=== PATIENT | female | born 1995 | race Caucasian/White ===

== ENCOUNTER 2020-03-20 12:49 | Outpatient (REF) | payer OTHER, SELFPAY ==
--- NOTE | 2020-03-20 16:22 | MHC.AU.P13 ---
Adult Audiological Evaluation Date of Visit: 03/20/20 [employer] Super[employer] Used: ASL translation by mother Reason for Appointment: Audiological evaluation to monitor the status of Ms. Hill's hearing loss. She has a long standing history of severe to profound sensorineural hearing loss and speaks ASL. She denies any significant changes to her hearing and notes that the hearing aids have been working well. [place] [facility] [place] Moderately severe to profound sensorineural hearing loss in the right ear. Severe to profound sensorineural hearing loss in the left ear. 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: [employer] Model: Jocelyn S III UP Serial Number: [id number] Battery Size: 675 Warranty: 09/01/2017 Dispensed By: [facility] Date of Fittin06/19/2015 Hearing Instrument History- Left Ear: Film Tests Checker: Phonak Model: Jocelyn S III UP Serial Number: [id number] Battery Size: 675 Warranty: 04/17/2014 Dispensed By: [facility] Date of Fittin02/07/2012 Otoscopy: Right Ear: Unremarkable Left Ear: Unremarkable Tympanometry: Right Ear: Normal Middle Ear System (Type A) Left Ear: Normal Middle Ear System (Type A) Hearing Evaluation: Transducer(s) Used: Insert Earphones, Bone Conduction Method: Conventional Audiometry Stimuli Used: Pure Tones Right Ear: Description of Hearing: Moderately severe sensorineural hearing loss from 250-500 Hz, sloping to a severe sensorineural hearing loss from 3770-4254 Hz, and a profound hearing loss from 9822-5832 Hz. Left Ear: Description of Hearing: Severe sensorineural hearing loss from 250-500 Hz, and a profound hearing loss from 3828-5282 Hz. Speech Recognition Threshold (SRT): Method Used: Not performed at today's visit. Right Ear: Did not test- Patient speaks ASL Left Ear: Did not test- Patient speaks ASL Word Discrimination: Method: Not performed at today's visit. Right Ear: Did not test- Patient speaks ASL Left Ear: Did not test- Patient speaks ASL Comparison: Compared to the most recent evaluation: Hearing is stable. Recommendations: Recommendations: Audiological re-evaluation in one year. Recommendations (Other): Hearing aid maintenance was performed. Ms. Hill will be eligible for new hearing aids in June 2020. She should return for a hearing aid evaluation at that time if she is interested in pursuing updated amplification. Diagnosis: Primary Diagnosis: H90.3 Bilateral Sensorineural Hearing Loss Services Performed: Services Performed: Pure Tone- Air & Bone (CPT 05641) Tympanometry (CPT 10944) Signature: Provider: Liliane Francisco, CCC-A
== END 2020-03-20 12:50 | disposition home or self-care (01) ==
LOC: HO.SH 12:49
PROVIDERS: Visit Provider Internal Medicine
DX: Z46.1 Encounter for fitting and adjustment of hearing aid (principal); H90.3 Sensorineural hearing loss, bilateral
CPT/HCPCS: 92553; 92567; 92593; 99499; V5266

== ENCOUNTER 2020-04-27 15:06 | Emergency (ER) | payer OTHER, SELFPAY ==
[2020-04-27 15:14] VITALS: BP 106/72; PULSE 85; RESP 16; TEMP 36.7; O2SAT 98; BMI 53.8
[2020-04-27 16:54] LABS: MANUAL DIFF FLAG NO
[2020-04-27 16:57] LABS: Basophils Percent Auto 0.4 % (0-2); Eosinophils Absolute Auto 0.1 X10*3/uL (0.0-0.4); Hematocrit 39.9 % (37-47); Hemoglobin 12.9 g/dl (12.0-16.0); Imm Gran Abs Auto 0.01 X10*3/uL (0.00-0.03); Imm Gran Pct Auto 0.2 % (0.0-0.4); Lymphocytes Absolute Auto 0.9 X10*3/uL (1.2-4.9); Mean Corpuscular HGB Conc 32.3 g/dl (31.0-35.0); Mean Corpuscular Hemoglobin 26.7 pg (27.0-33.0); Mean Corpuscular Volume 82.4 fL (80-98); Mean Platelet Volume 10.4 fL (9.4-12.3); Monocytes Absolute Auto 0.5 X10*3/uL (0.1-1.2); Monocytes Percent Auto 10.7 % (2-11); Neutrophils Absolute Auto 3.1 X10*3/uL (2.0-8.3); Neutrophils Percent Auto 66.7 % (45-73); Platelet Count 231 X10*3/uL (160-400); Red Blood Count 4.84 X10*6/uL (4.20-5.50); Red Cell Distribution Width 13.2 % (11.0-16.0); White Blood Count 4.6 X10*3/uL (4.8-10.8)
[2020-04-27 17:18] LABS: Anion Gap 15 (12-20); Blood Urea Nitrogen 9 mg/dL (9-16); Carbon Dioxide 20 mmol/L (22-29); Chloride 111 mmol/L (96-108); Estimated Glomerular Filt Rate > 60; Ethanol < 10 mg/dL; Glucose Random 87 mg/dL (60-115); Potassium 4.2 mmol/L (3.3-5.1); Sodium 142 mmol/L (135-145)
--- NOTE | 2020-04-27 18:25 | ED_ITS ---
HPI - Psych General Chief Complaint: Psychiatric Symptoms Stated Complaint: DIZZINESS Time Seen by Provider: 04/27/20 18:25 Source: patient and family Mode of arrival: ambulatory Limitations: language barrier History of Present Illness HPI Narrative: Patient uses ASL only, per mother patient is lying in the bed most of the time not eating or drinking increased depression no suicidal ideation. Patient had similar episode in the past and during these episodes patient usually refuses to eat or drink patient also complain of pain during urination for last few days no fever no chills also complaining of upper ab dominal pain which is chronic gastritis and patient taking Prilosec for that Related Data Previous Rx's Medication Instructions Recorded nitrofurantoin monohyd/m-cryst 100 mg PO Q12H 10 Days #20 cap 04/27/20 [Macrobid] ondansetron 4 mg PO Q6H PRN #7 tab 04/27/20 Allergies Allergy/AdvReac Type Severity Reaction Status Date / Time azithromycin [AZITHROMYCIN] Allergy Unknown UNKNOWN Unverified 12/06/19 16:37 ciprofloxacin [CIPROFLOXACIN] Allergy Unknown UNKNOWN Unverified 12/06/19 16:37 levofloxacin [LEVOFLOXACIN] Allergy Unknown UNKNOWN Unverified 12/06/19 16:37 sulfamethizole Allergy Unknown UNKNOWN Unverified 12/06/19 16:37 [SULFAMETHIZOLE] trimethoprim [TRIMETHOPRIM] Allergy Unknown UNKNOWN Unverified 12/06/19 16:37 vancomycin [VANCOMYCIN] Allergy Unknown UNKNOWN Unverified 12/06/19 16:37 ceftriaxone [CEFTRIAXONE] AdvReac Unknown ITCHING Unverified 12/06/19 16:37 Review of Systems Review of Systems: Constitutional : No Weight loss, No Fever, No Chills ENT/Mouth : No sore throat, No Rhinorrhea Eyes: No Eye Pain, No Swelling Cardiovascular : No Chest Pain, no palpitations Respiratory : No Cough, No Sputum, no shortness of breath Gastrointestinal : +Nausea, No Vomiting, No Diarrhea, + abdominal Pain, no black stools Genitourinary : + Dysuria, No Urinary Frequency Musculoskeletal : No joint pain, No Myalgias, No Joint Swelling Skin : No Skin Lesions, No rash Neuro : No Weakness, No Numbness, No Dizziness, No Headache Psych : No Anxiety/Panic, No Depression Heme/Lymph: No Bruising, No Lymphadenopathy Endocrine : No Polyuria, No Polydipsia All other systems reviewed and are negative [facility] Past Medical History Medical History Depression Immunodeficiency Social History Social History Advance Directives: No Advance Directives Information Provided: Yes Physical Exam Vital Signs: Vital Signs: Last Vital Signs Temp 97.6 F 04/27/20 20:45 Pulse 97 04/27/20 20:45 Resp 16 04/27/20 20:45 BP 99/63 04/27/20 20:45 Pulse Ox 100 04/27/20 20:45 Body Mass Index 53.8 Const: General: healthy appearing, comfortable, no acute distress, well developed, alert, awake and other (Patient is deaf uses ASL only) Nutritional Appearance: average body habitus Orientation/consciousness: patient oriented x3 HENMT: Head: Yes normal to inspection, Yes normocephalic and Yes atraumatic Ears: hearing grossly normal bilaterally Mouth: Normal oral and palatal mucosa present Eyes: General: appearance normal, both eyes and all related structures Neck: Neck: Yes normal visual inspection and Yes full ROM Chest: Chest palpation & inspection: normal inspection of the chest Resp: Effort & Inspection: normal respiratory effort Auscultation: clear to auscultation bilaterally, no crackles, no rales and no rhonchi Cardio: Jugular venous distension: no JVD Rhythm: regular rhythm Heart sounds: S1 normal heart sound present and S2 normal heart sound present Peripheral pulses: Peripheral pulses 2+ throughout GI: Inspection: Yes normal to inspection Palpation (GI): Soft to palpation and nontender Percussion: Yes normal to percussion : General: Yes no CVA tenderness Back/Spine/Pelvis: Back: no CVA tenderness Thoracic/Lumbar Spine: thoracic and lumbar spine normal to inspection Skin: General skin exam: no rashes or lesions noted Neuro: General: patient oriented x3, gait normal, tone normal, moves all extremities and no focal motor deficits Extrem: General: Yes normal to inspection, Yes no calf tenderness and No pedal edema Psych: Appearance: grossly normal and well kempt Speech and movement: Mute speech present Affect: Indifferent affect present Attitude: cooperative Insight: Fair insight present (Psych) MDM - Psych MDM Narrative Medical decision making narrative: Patient received 2 L IV fluids feeling much better now urine shows UTI will discharge her home on Macrobid no signs of pyelonephritis at this time patient's symptoms likely because of depression and UTI advised to follow-up with therapist and continue take antibiotics Medical Records Attestation: I reviewed the patient's medical records. Lab Data Attestation: I reviewed the patient's lab results. Result diagrams: 04/27/20 19:26 04/27/20 19:26 Labs: Lab Results 04/27/20 04/27/20 04/27/20 Range/Units 16:49 16:49 16:49 WBC 4.6 L (4.8-10.8) X10*3/uL RBC 4.84 (4.20-5.50) X10*6/uL Hgb 12.9 (12.0-16.0) g/dl Hct 39.9 (37-47) % MCV 82.4 (80-98) fL MCH 26.7 L (27.0-33.0) pg MCHC 32.3 (31.0-35.0) g/dl RDW 13.2 (11.0-16.0) % Plt Count 231 (160-400) X10*3/uL MPV 10.4 (9.4-12.3) fL Immature Gran % (Auto) 0.2 (0.0-0.4) % Neut % (Auto) 66.7 (45-73) % Lymph % (Auto) 20.0 (20-40) % [place] % (Auto) 10.7 (2-11) % Eos % (Auto) 2.0 (0-4) % Baso % (Auto) 0.4 (0-2) % Lymph # (Auto) 0.9 L (1.2-4.9) X10*3/uL [place] # (Auto) 0.5 (0.1-1.2) X10*3/uL Eos # (Auto) 0.1 (0.0-0.4) X10*3/uL Baso # (Auto) 0.0 (0.0-0.2) X10*3/uL Abs Immat Gran (auto) 0.01 (0.00-0.03) X10*3/uL Absolute Neuts (auto) 3.1 (2.0-8.3) X10*3/uL Absolute Nucleated RBC 0.000 (0.0-0.012) X10*3/uL Nucleated RBC % (auto) 0.0 (0.0-0.2) /100WBC Sodium 142 (135-145) mmol/L Potassium 4.2 (3.3-5.1) mmol/L Chloride 111 H (96-108) mmol/L Carbon Dioxide 20 L (22-29) mmol/L Anion Gap 15 (12-20) BUN 9 (9-16) mg/dL Creatinine 0.80 (0.5-1.4) mg/dL Estim Creat Clear Calc 130.0 Estimated GFR > 60 Random Glucose 87 (60-115) mg/dL Calcium 9.0 (8.4-10.2) mg/dL Total Bilirubin (0.0-1.0) mg/dL Direct Bilirubin (0.0-0.5) mg/dL AST (5-31) U/L ALT (0-31) U/L Alkaline Phosphatase (39-117) U/L Total Protein (6.5-8.0) g/dL Albumin (3.5-5.0) g/dL Urine Color Urine Appearance Urine pH (5.0-8.0) Ur Specific [place] (1.005-1.025) Urine Protein (NEG-TRACE) MG/DL Urine Glucose (UA) (NEG) MG/DL Urine Ketones (NEG) MG/DL Urine Blood (NEG) Urine Nitrite (NEG) Ur Leukocyte Esterase (NEG) Urine RBC (0) /HPF Urine WBC (0-4) /HPF Ur Squamous Epith Cells /LPF Urine Bacteria /LPF Urine Mucus /LPF Ethyl Alcohol < 10 mg/dL 04/27/20 04/27/20 04/27/20 Range/Units 19:19 19:26 19:26 WBC 4.1 L (4.8-10.8) X10*3/uL RBC 4.48 (4.20-5.50) X10*6/uL Hgb 11.9 L (12.0-16.0) g/dl Hct 36.8 L (37-47) % MCV 82.1 (80-98) fL MCH 26.6 L (27.0-33.0) pg MCHC 32.3 (31.0-35.0) g/dl RDW 13.1 (11.0-16.0) % Plt Count 225 (160-400) X10*3/uL MPV 10.6 (9.4-12.3) fL Immature Gran % (Auto) 0.5 H (0.0-0.4) % Neut % (Auto) 60.3 (45-73) % Lymph % (Auto) 23.5 (20-40) % [place] % (Auto) 13.1 H (2-11) % Eos % (Auto) 1.9 (0-4) % Baso % (Auto) 0.7 (0-2) % Lymph # (Auto) 1.0 L (1.2-4.9) X10*3/uL [place] # (Auto) 0.5 (0.1-1.2) X10*3/uL Eos # (Auto) 0.1 (0.0-0.4) X10*3/uL Baso # (Auto) 0.0 (0.0-0.2) X10*3/uL Abs Immat Gran (auto) 0.02 (0.00-0.03) X10*3/uL Absolute Neuts (auto) 2.5 (2.0-8.3) X10*3/uL Absolute Nucleated RBC 0.000 (0.0-0.012) X10*3/uL Nucleated RBC % (auto) 0.0 (0.0-0.2) /100WBC Sodium 143 (135-145) mmol/L Potassium 3.6 (3.3-5.1) mmol/L Chloride 113 H (96-108) mmol/L Carbon Dioxide 20 L (22-29) mmol/L Anion Gap 14 (12-20) BUN 9 (9-16) mg/dL Creatinine 0.77 (0.5-1.4) mg/dL Estim Creat Clear Calc 135.1 Estimated GFR > 60 Random Glucose 89 (60-115) mg/dL Calcium 8.8 (8.4-10.2) mg/dL Total Bilirubin 0.2 (0.0-1.0) mg/dL Direct Bilirubin < 0.2 (0.0-0.5) mg/dL AST 22 (5-31) U/L ALT 20 (0-31) U/L Alkaline Phosphatase 70 (39-117) U/L Total Protein 7.1 (6.5-8.0) g/dL Albumin 4.2 (3.5-5.0) g/dL Urine Color YELLOW Urine Appearance CLEAR Urine pH 6.0 (5.0-8.0) Ur Specific [place] 1.025 (1.005-1.025) Urine Protein NEG (NEG-TRACE) MG/DL Urine Glucose (UA) NEG (NEG) MG/DL Urine Ketones NEG (NEG) MG/DL Urine Blood TRACE (NEG) Urine Nitrite NEG (NEG) Ur Leukocyte Esterase 1+ H (NEG) Urine RBC 1-4 (0) /HPF Urine WBC 15-29 H (0-4) /HPF Ur Squamous Epith Cells 2+ /LPF Urine Bacteria 1+ /LPF Urine Mucus 1+ /LPF Ethyl Alcohol mg/dL Discharge Plan Discharge Clinical Impression: UTI (urinary tract infection) Patient Disposition: Home, Self-Care Instructions: Urinary Tract Infection in Women (ED) Additional Instructions: Drink plenty of fluids Take antibiotics as prescribed medicine for nausea as prescribed Report to the ER if increased vomiting/fever/not feeling good Prescriptions: New nitrofurantoin monohyd/m-cryst [Macrobid] 100 mg capsule 100 mg PO Q12H 10 Days Qty: 20 RF: 0 ondansetron 4 mg tablet,disintegrating 4 mg PO Q6H PRN (Reason: nausea and vomiting) Qty: 7 RF: 0 Interventions: ED Discharge Assessment Last Done: 04/27/20 22:45 Discharge Date/Time: 04/27/20 22:46
[2020-04-27 19:28] VITALS: BP 111/72; PULSE 87; RESP 16; TEMP 37.1; O2SAT 100
[2020-04-27 19:34] LABS: MANUAL DIFF FLAG NO
[2020-04-27 19:36] LABS: Basophils Percent Auto 0.7 % (0-2); Eosinophils Absolute Auto 0.1 X10*3/uL (0.0-0.4); Eosinophils Percent Auto 1.9 % (0-4); Hematocrit 36.8 % (37-47); Hemoglobin 11.9 g/dl (12.0-16.0); Imm Gran Abs Auto 0.02 X10*3/uL (0.00-0.03); Imm Gran Pct Auto 0.5 % (0.0-0.4); Lymphocytes Percent Auto 23.5 % (20-40); Mean Corpuscular HGB Conc 32.3 g/dl (31.0-35.0); Mean Corpuscular Hemoglobin 26.6 pg (27.0-33.0); Mean Corpuscular Volume 82.1 fL (80-98); Mean Platelet Volume 10.6 fL (9.4-12.3); Monocytes Absolute Auto 0.5 X10*3/uL (0.1-1.2); Monocytes Percent Auto 13.1 % (2-11); Neutrophils Absolute Auto 2.5 X10*3/uL (2.0-8.3); Neutrophils Percent Auto 60.3 % (45-73); Platelet Count 225 X10*3/uL (160-400); Red Blood Count 4.48 X10*6/uL (4.20-5.50); Red Cell Distribution Width 13.1 % (11.0-16.0); White Blood Count 4.1 X10*3/uL (4.8-10.8)
[2020-04-27] MEDS: 0.9 % Sodium Chloride 1,000 ML 999 ML IVCONT ×2 (19:36→19:50)
[2020-04-27 19:38] LABS: Glucose Urine UA NEG (NEG); Leukocyte Esterase Urine 1+ (NEG); Nitrite Urine NEG (NEG); Specific Gravity - Urine 1.025 (1.005-1.025); UACC Culture Trigger YES; Urine Blood TRACE (NEG); Urine Ketones NEG (NEG); Urine Protein NEG (NEG-TRACE)
[2020-04-27 19:39] LABS: Appearance Urine CLEAR; Color Urine YELLOW
[2020-04-27 19:45] LABS: Bacteria Urine 1+ /LPF; Mucus Urine 1+ /LPF; Squamous Epithelial Cell Urine 2+ /LPF
[2020-04-27] MEDS: ondansetron HCL 4 MG/2 ML VIAL IVPUSH (19:50)
[2020-04-27] MEDS: Famotidine/PF 20 MG/2 ML VIAL IVPUSH (19:50)
[2020-04-27 20:29] LABS: Alanine Aminotransferase 20 U/L (0-31); Albumin Level 4.2 g/dL (3.5-5.0); Alkaline Phosphatase 70 U/L (39-117); Anion Gap 14 (12-20); Aspartate Amino Transferase 22 U/L (5-31); Bilirubin Direct < 0.2 mg/dL (0.0-0.5); Bilirubin Total 0.2 mg/dL (0.0-1.0); Blood Urea Nitrogen 9 mg/dL (9-16); Calcium 8.8 mg/dL (8.4-10.2); Carbon Dioxide 20 mmol/L (22-29); Chloride 113 mmol/L (96-108); Creatinine Clr Calc Pharmacy 135.1; Estimated Glomerular Filt Rate > 60; Glucose Random 89 mg/dL (60-115); Potassium 3.6 mmol/L (3.3-5.1); Sodium 143 mmol/L (135-145); Total Protein 7.1 g/dL (6.5-8.0)
[2020-04-27 20:45] VITALS: BP 99/63; PULSE 97; RESP 16; TEMP 36.4; O2SAT 100
[2020-04-27] MEDS: Nitrofurantoin Monohyd/M-Cryst 100 MG CAPSULE PO (22:17)
[2020-04-27] MEDS: Magnesium Hydrox/Alum Hydrox 30 ML ORAL.SUSP PO (22:17)
== END 2020-04-27 22:46 | disposition home or self-care (01) ==
PROVIDERS: Emergency Provider Internal Medicine
DX: N30.00 Acute cystitis without hematuria (principal); F32.9 Major depressive disorder, single episode, unspecified
CPT/HCPCS: 36415; 80048; 80076; 80320; 81001; 81003; 85025; 87086; 96361; 96374; 96375; 99284; J1642; J2405

== ENCOUNTER 2020-08-08 14:39 | Outpatient (REF) | payer OTHER, SELFPAY | END 2020-08-08 14:40 | disposition home or self-care (01) | LOC: HO.HAP 14:39 | PROVIDERS: Visit Provider Internal Medicine | DX: H90.3 Sensorineural hearing loss, bilateral (principal); Z46.1 Encounter for fitting and adjustment of hearing aid | CPT/HCPCS: 92593; V5266 ==

== ENCOUNTER 2021-02-03 09:24 | Outpatient (REF) | payer OTHER, SELFPAY ==
--- NOTE | 2021-02-03 09:45 | MHC.AU.P13 ---
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 Hearing aids cleaned, tone hooks, gio filters, and tubings changed - both amplifying clearly. Recommendations: Recommendations: Hearing instrument follow-up or maintenance as needed. Diagnosis Code(s): Primary Diagnosis: H90.3 Bilateral Sensorineural Hearing Loss Signature: Provider: NATALIA Palacios-HIS
== END 2021-02-03 09:25 | disposition home or self-care (01) ==
LOC: HO.HAP 09:24
PROVIDERS: PCP Internal Medicine; Visit Provider Internal Medicine
DX: Z46.1 Encounter for fitting and adjustment of hearing aid (principal); H90.3 Sensorineural hearing loss, bilateral
CPT/HCPCS: V5266

== ENCOUNTER 2021-03-04 11:31 | Emergency (ER) | payer OTHER, SELFPAY ==
[2021-03-04 11:56] VITALS: BP 116/87; PULSE 97; RESP 18; TEMP 36.6; O2SAT 100; BMI 30.8
--- NOTE | 2021-03-04 12:20 | ED_ITS ---
HPI - Nausea/Vomiting/Diarrhea General Chief complaint: Nausea/Vomiting/Diarrhea <TESS Loera - Last Filed: 03/04/21 12:21> Stated complaint: vomiting <TESS Loera - Last Filed: 03/04/21 12:21> Time Seen by Provider: 03/04/21 12:20 <TESS Loera - Last Filed: 03/04/21 12:21> Related Data Home medications: Previous Rx's Medication Instructions Recorded nitrofurantoin 100 mg PO Q12H 10 Days #20 cap 04/27/20 monohydrate/macrocrystals 100 mg capsule (Macrobid) ondansetron 4 mg disintegrating 4 mg PO Q6H PRN #7 tab 04/27/20 tablet <TESS Loera - Last Filed: 03/04/21 12:21> Allergies/Adverse reactions: Allergies Allergy/AdvReac Type Severity Reaction Status Date / Time azithromycin [AZITHROMYCIN] Allergy Unknown UNKNOWN Unverified 12/06/19 16:37 ciprofloxacin [CIPROFLOXACIN] Allergy Unknown UNKNOWN Unverified 12/06/19 16:37 levofloxacin [LEVOFLOXACIN] Allergy Unknown UNKNOWN Unverified 12/06/19 16:37 sulfamethizole Allergy Unknown UNKNOWN Unverified 12/06/19 16:37 [SULFAMETHIZOLE] trimethoprim [TRIMETHOPRIM] Allergy Unknown UNKNOWN Unverified 12/06/19 16:37 vancomycin [VANCOMYCIN] Allergy Unknown UNKNOWN Unverified 12/06/19 16:37 ceftriaxone [CEFTRIAXONE] AdvReac Unknown ITCHING Unverified 12/06/19 16:37 <TESS Loera - Last Filed: 03/04/21 12:21> [facility] Past Medical History Medical History: Medical History Depression Immunodeficiency <TESS Loera - Last Filed: 03/04/21 12:21> Physical Exam Vital Signs: Vital Signs: Last Vital Signs Temp 98.4 F 03/04/21 22:00 Pulse 96 03/04/21 22:00 Resp 16 03/04/21 22:00 BP 96/67 03/04/21 22:00 Pulse Ox 97 03/04/21 22:00 BMI result Body Mass Index 30.8 <TESS Loera - Last Filed: 03/04/21 12:21> Vital Signs: Last Vital Signs Temp 98.4 F 03/04/21 22:00 Pulse 96 03/04/21 22:00 Resp 16 03/04/21 22:00 BP 96/67 03/04/21 22:00 Pulse Ox 97 03/04/21 22:00 BMI result Body Mass Index 30.8 <TESS Singh - Last Filed: 03/04/21 22:35> Course Course Course Narrative: patient brought by patient for vomtting and abdominal pain. Patient receintly traveled from [place]. Patient is stable. Rapid medical screening done. <TESS Loera - Last Filed: 03/04/21 12:21> MDM - Nausea/Vomiting/Diarrhea Lab Data Result diagrams: : 03/04/21 16:49 03/04/21 16:49 <TESS Loera - Last Filed: 03/04/21 12:21> Labs: Lab Results 03/04/21 03/04/21 03/04/21 Range/Units 13:19 16:49 16:49 WBC 3.8 L (4.8-10.8) X10*3/uL RBC 5.48 (4.20-5.50) X10*6/uL Hgb 12.7 (12.0-16.0) g/dl Hct 41.7 (37.0-47.0) % MCV 76.1 L (80.0-98.0) fL MCH 23.2 L (27.0-33.0) pg MCHC 30.5 L (31.0-35.0) g/dl RDW 15.1 (11.0-16.0) % Plt Count 313 (160-400) X10*3/uL MPV 11.1 (9.4-12.3) fL Immature Gran % (Auto) 0.5 H (0.0-0.4) % Neut % (Auto) 58.3 (45-73) % Lymph % (Auto) 23.5 (20-40) % [place] % (Auto) 13.5 H (2-11) % Eos % (Auto) 3.4 (0-4) % Baso % (Auto) 0.8 (0-2) % Lymph # (Auto) 0.9 L (1.2-4.9) X10*3/uL [place] # (Auto) 0.5 (0.1-1.2) X10*3/uL Eos # (Auto) 0.1 (0.0-0.4) X10*3/uL Baso # (Auto) 0.0 (0.0-0.2) X10*3/uL Abs Immat Gran (auto) 0.02 (0.00-0.03) X10*3/uL Absolute Neuts (auto) 2.2 (2.0-8.3) x10*3/uL Absolute Nucleated RBC 0.000 (0.0-0.012) X10*3/uL Nucleated RBC % (auto) 0.0 (0.0-0.2) /100WBC Sodium 141 (135-145) mmol/L Potassium 4.0 (3.3-5.1) mmol/L Chloride 109 H (96-108) mmol/L Carbon Dioxide 21 L (22-29) mmol/L Anion Gap 15 (12-20) BUN 10 (9-16) mg/dL Creatinine 0.85 (0.5-1.4) mg/dL Estim Creat Clear Calc 87.8 Estimated GFR > 60 Random Glucose 75 (60-115) mg/dL Calcium 9.8 D (8.4-10.2) mg/dL Magnesium 2.3 (1.6-2.6) mg/dL Total Bilirubin 0.4 (0.0-1.0) mg/dL AST 43 H D (5-31) U/L ALT 39 H (0-31) U/L Alkaline Phosphatase 123 H D (39-117) U/L Total Protein 8.1 H (6.5-8.0) g/dL Albumin 4.6 (3.5-5.0) g/dL Lipase 23 (8-78) U/L Influenza Type A (PCR) NEGATIVE (Negative) Influenza Type B (PCR) NEGATIVE (Negative) RSV RNA Qual (PCR) NEGATIVE (Negative) SARS-CoV-2 RNA (RT-PCR) NEGATIVE (Negative) <TESS Loera - Last Filed: 03/04/21 12:21> Lab Results 12/15/21 12/15/21 12/15/21 Range/Units 13:19 16:49 16:49 WBC 3.8 L (4.8-10.8) X10*3/uL RBC 5.48 (4.20-5.50) X10*6/uL Hgb 12.7 (12.0-16.0) g/dl Hct 41.7 (37.0-47.0) % MCV 76.1 L (80.0-98.0) fL MCH 23.2 L (27.0-33.0) pg MCHC 30.5 L (31.0-35.0) g/dl RDW 15.1 (11.0-16.0) % Plt Count 313 (160-400) X10*3/uL MPV 11.1 (9.4-12.3) fL Immature Gran % (Auto) 0.5 H (0.0-0.4) % Neut % (Auto) 58.3 (45-73) % Lymph % (Auto) 23.5 (20-40) % [place] % (Auto) 13.5 H (2-11) % Eos % (Auto) 3.4 (0-4) % Baso % (Auto) 0.8 (0-2) % Lymph # (Auto) 0.9 L (1.2-4.9) X10*3/uL [place] # (Auto) 0.5 (0.1-1.2) X10*3/uL Eos # (Auto) 0.1 (0.0-0.4) X10*3/uL Baso # (Auto) 0.0 (0.0-0.2) X10*3/uL Abs Immat Gran (auto) 0.02 (0.00-0.03) X10*3/uL Absolute Neuts (auto) 2.2 (2.0-8.3) x10*3/uL Absolute Nucleated RBC 0.000 (0.0-0.012) X10*3/uL Nucleated RBC % (auto) 0.0 (0.0-0.2) /100WBC Sodium 141 (135-145) mmol/L Potassium 4.0 (3.3-5.1) mmol/L Chloride 109 H (96-108) mmol/L Carbon Dioxide 21 L (22-29) mmol/L Anion Gap 15 (12-20) BUN 10 (9-16) mg/dL Creatinine 0.85 (0.5-1.4) mg/dL Estim Creat Clear Calc 87.8 Estimated GFR > 60 Random Glucose 75 (60-115) mg/dL Calcium 9.8 D (8.4-10.2) mg/dL Magnesium 2.3 (1.6-2.6) mg/dL Total Bilirubin 0.4 (0.0-1.0) mg/dL AST 43 H D (5-31) U/L ALT 39 H (0-31) U/L Alkaline Phosphatase 123 H D (39-117) U/L Total Protein 8.1 H (6.5-8.0) g/dL Albumin 4.6 (3.5-5.0) g/dL Lipase 23 (8-78) U/L Influenza Type A (PCR) NEGATIVE (Negative) Influenza Type B (PCR) NEGATIVE (Negative) RSV RNA Qual (PCR) NEGATIVE (Negative) SARS-CoV-2 RNA (RT-PCR) NEGATIVE (Negative) <TESS Singh - Last Filed: 03/04/21 22:35> Discharge Plan Discharge Prescriptions: No Action nitrofurantoin monohyd/m-cryst [Macrobid] 100 mg capsule 100 mg PO Q12H 10 Days Qty: 20 RF: 0 ondansetron 4 mg tablet,disintegrating 4 mg PO Q6H PRN (Reason: nausea and vomiting) Qty: 7 RF: 0 <TESS Loera - Last Filed: 03/04/21 12:21>
[2021-03-04 14:05] LABS: Influenza A PCR NEGATIVE (Negative); Influenza B PCR NEGATIVE (Negative); Resp Syncy Virus RNA Qual PCR NEGATIVE (Negative); SARS COV2 PCR INHOUSE NEGATIVE (Negative)
[2021-03-04 16:54] LABS: MANUAL DIFF FLAG NO
[2021-03-04 16:57] LABS: Basophils Percent Auto 0.8 % (0-2); Eosinophils Absolute Auto 0.1 X10*3/uL (0.0-0.4); Eosinophils Percent Auto 3.4 % (0-4); Hematocrit 41.7 % (37.0-47.0); Hemoglobin 12.7 g/dl (12.0-16.0); Imm Gran Abs Auto 0.02 X10*3/uL (0.00-0.03); Imm Gran Pct Auto 0.5 % (0.0-0.4); Lymphocytes Absolute Auto 0.9 X10*3/uL (1.2-4.9); Lymphocytes Percent Auto 23.5 % (20-40); Mean Corpuscular HGB Conc 30.5 g/dl (31.0-35.0); Mean Corpuscular Hemoglobin 23.2 pg (27.0-33.0); Mean Corpuscular Volume 76.1 fL (80.0-98.0); Mean Platelet Volume 11.1 fL (9.4-12.3); Monocytes Absolute Auto 0.5 X10*3/uL (0.1-1.2); Monocytes Percent Auto 13.5 % (2-11); Neutrophils Absolute Auto 2.2 x10*3/uL (2.0-8.3); Neutrophils Percent Auto 58.3 % (45-73); Platelet Count 313 X10*3/uL (160-400); Red Blood Count 5.48 X10*6/uL (4.20-5.50); Red Cell Distribution Width 15.1 % (11.0-16.0); White Blood Count 3.8 X10*3/uL (4.8-10.8)
[2021-03-04 17:14] LABS: Alanine Aminotransferase 39 U/L (0-31); Albumin Level 4.6 g/dL (3.5-5.0); Alkaline Phosphatase 123 U/L (39-117); Anion Gap 15 (12-20); Aspartate Amino Transferase 43 U/L (5-31); Bilirubin Total 0.4 mg/dL (0.0-1.0); Blood Urea Nitrogen 10 mg/dL (9-16); Calcium 9.8 mg/dL (8.4-10.2); Carbon Dioxide 21 mmol/L (22-29); Chloride 109 mmol/L (96-108); Creatinine Clr Calc Pharmacy 87.8; Estimated Glomerular Filt Rate > 60; Glucose Random 75 mg/dL (60-115); Lipase 23 U/L (8-78); Sodium 141 mmol/L (135-145); Total Protein 8.1 g/dL (6.5-8.0)
[2021-03-04 22:00] VITALS: BP 96/67; PULSE 96; RESP 16; TEMP 36.9; O2SAT 97
--- NOTE | 2021-03-04 22:05 | ED.NAVMDI ---
HPI - Nausea/Vomiting/Diarrhea General Chief complaint: Nausea/Vomiting/Diarrhea Stated complaint: vomiting Time Seen by Provider: 03/04/21 12:20 Source: patient Mode of arrival: ambulatory History of Present Illness HPI Narrative: 26-year-old female with past medical history of depression, immunodeficiency, presenting to the ED complaining nausea, vomiting, nonbloody diarrhea, abdominal pain, chills, and inability to tolerate p.o. x5 days. Also reports pruritic rash to arms and legs. Admits recently traveled to [place] on , returned on Tuesday, denies known bad food/water exposures, or others with similar symptoms. Denies fever, cough, hematemesis, dysuria/hematuria Most history obtained from mother with mother's help/court interpreter as patient mainly speaks using sign language MD elicited complaint: nausea, vomiting and abdominal pain Location of pain: epigastric Related Data Previous Rx's Medication Instructions Recorded nitrofurantoin 100 mg PO Q12H 10 Days #20 cap 04/27/20 monohydrate/macrocrystals 100 mg capsule (Macrobid) ondansetron 4 mg disintegrating 4 mg PO Q6H PRN #7 tab 04/27/20 tablet Allergies Allergy/AdvReac Type Severity Reaction Status Date / Time azithromycin [AZITHROMYCIN] Allergy Unknown UNKNOWN Unverified 12/06/19 16:37 ciprofloxacin [CIPROFLOXACIN] Allergy Unknown UNKNOWN Unverified 12/06/19 16:37 levofloxacin [LEVOFLOXACIN] Allergy Unknown UNKNOWN Unverified 12/06/19 16:37 sulfamethizole Allergy Unknown UNKNOWN Unverified 12/06/19 16:37 [SULFAMETHIZOLE] trimethoprim [TRIMETHOPRIM] Allergy Unknown UNKNOWN Unverified 12/06/19 16:37 vancomycin [VANCOMYCIN] Allergy Unknown UNKNOWN Unverified 12/06/19 16:37 ceftriaxone [CEFTRIAXONE] AdvReac Unknown ITCHING Unverified 12/06/19 16:37 Review of Systems Review of Systems: Constitutional: No Fever, No Chills, No Fatigue, No Malaise ENT/Mouth: No Ear Pain, No Nasal Congestion, No Sinus Pain, No sore throat, No Rhinorrhea, No Swallowing Difficulty Eyes: No Eye Pain, No Swelling, No Redness Cardiovascular: No Chest Pain, No SOB, No Dyspnea on Exertion, No Edema, No Palpitations Respiratory: No Cough, No Sputum, No Dyspnea Gastrointestinal: + Nausea, + Vomiting, + Diarrhea, No Constipation, + Abdominal pain, No Hematochezia, No Melena Genitourinary: No Dysuria, No Urinary Frequency, No Hematuria, No Flank Pain, No Urinary Flow Changes, No Hesitancy Musculoskeletal: No joint pain, No Myalgias, No Joint Swelling Skin: No Skin Lesions, + rash Neuro: No Weakness, No Loss of Consciousness, No Dizziness, No Headache Yes all other systems are reviewed and are negative [facility] Past Medical History Attestation statement: The following information was validated with the patient. Medical History Depression Immunodeficiency Social History Social History Patient Tobacco Use Status: Never used Tobacco Use of substances other than those prescribed or required for medical reasons: No Advance Directives: No Advance Directives Information Provided: Yes Physical Exam Vital Signs: Vital Signs: Last Vital Signs Temp 98.4 F 03/04/21 22:00 Pulse 96 03/04/21 22:00 Resp 16 03/04/21 22:00 BP 96/67 03/04/21 22:00 Pulse Ox 97 03/04/21 22:00 BMI result Body Mass Index 30.8 Const: General: cooperative, healthy appearing, no acute distress, well developed, alert and awake Orientation/consciousness: patient oriented x3 Limitations: no limitations HENMT: Head: Yes normal to inspection Ears: hearing grossly normal bilaterally General nose exam: Normal external nose present Face and sinus: Yes normal facial exam Mouth: Normal oral and palatal mucosa present Throat: Yes posterior oropharynx normal Eyes: General: appearance normal, both eyes and all related structures EOM: EOMs intact bilaterally Neck: Neck: Yes normal visual inspection and Yes no meningeal signs Resp: Effort & Inspection: normal respiratory effort and no respiratory distress Auscultation: clear to auscultation bilaterally, no rales, no rhonchi and no wheezes Cardio: Rate: regular rate Heart sounds: S1 normal heart sound present and S2 normal heart sound present GI: Inspection: Yes normal to inspection Palpation (GI): Soft to palpation, Tenderness to palpation present (GI) in the epigastrum, no guarding and not rigid Skin: Other: + diffuse/spread out papules noted to bilateral upper extremities and lower extremities with excoriations. No streaking, no fluctuance/induration, no surrounding cellulitis. Rashes: rashes noted Wounds: no wounds Neuro: General: patient oriented x3, gait normal, tone normal, moves all extremities and no meningeal signs Gait exam (Neuro): Normal gait present Extrem: General: Yes normal to inspection Course Course Course Narrative: -2327--chronic leukopenia, AST/ALT mildly elevated, Alk Phos mildly elevated -UA not infected -COVID-19/influenza/RSV negative -0021---On re-evaluation patient reports symptomatic improvement, tolerated p.o. Zara Sangita and saltines without nausea or vomiting. Discussed worrisome signs and symptoms and strict return precautions including need follow-up with GI. Patient and mother verbalized understanding feel safe for discharge home MDM - Nausea/Vomiting/Diarrhea MDM Narrative Medical decision making narrative: 26-year-old female with past medical history of depression, immunodeficiency, presenting to the ED complaining nausea, vomiting, nonbloody diarrhea, abdominal pain, chills, and inability to tolerate p.o. x5 days. Also reports pruritic rash to arms and legs. On exam VSS, NAD, well-appearing nontoxic, abdomen soft with epigastric TTP, no rebound or guarding, diffuse papules noted to bilateral arms/legs. Concern for gastroenteritis/GERD/gastritis vs Food poisoning vs parasitic infections including Dengue and Malaria. Rule out metabolic abnormalities. Lower concern for cholecystitis/lithiasis, appendicitis, or diverticulitis Plan: Labs, UA, , IVF, symptomatic treatment, re-evaluate/p.o. challenge Differential Diagnosis Differential diagnosis: Likely traveler's diarrhea, food poisoning, gastroenteritis and dehydration Medical Records Attestation: I reviewed the patient's medical records. Lab Data Attestation: I reviewed the patient's lab results. Result diagrams: 03/04/21 16:49 03/04/21 16:49 Labs: Lab Results 03/04/21 03/04/21 03/04/21 Range/Units 13:19 16:49 16:49 WBC 3.8 L (4.8-10.8) X10*3/uL RBC 5.48 (4.20-5.50) X10*6/uL Hgb 12.7 (12.0-16.0) g/dl Hct 41.7 (37.0-47.0) % MCV 76.1 L (80.0-98.0) fL MCH 23.2 L (27.0-33.0) pg MCHC 30.5 L (31.0-35.0) g/dl RDW 15.1 (11.0-16.0) % Plt Count 313 (160-400) X10*3/uL MPV 11.1 (9.4-12.3) fL Immature Gran % (Auto) 0.5 H (0.0-0.4) % Neut % (Auto) 58.3 (45-73) % Lymph % (Auto) 23.5 (20-40) % [place] % (Auto) 13.5 H (2-11) % Eos % (Auto) 3.4 (0-4) % Baso % (Auto) 0.8 (0-2) % Lymph # (Auto) 0.9 L (1.2-4.9) X10*3/uL [place] # (Auto) 0.5 (0.1-1.2) X10*3/uL Eos # (Auto) 0.1 (0.0-0.4) X10*3/uL Baso # (Auto) 0.0 (0.0-0.2) X10*3/uL Abs Immat Gran (auto) 0.02 (0.00-0.03) X10*3/uL Absolute Neuts (auto) 2.2 (2.0-8.3) x10*3/uL Absolute Nucleated RBC 0.000 (0.0-0.012) X10*3/uL Nucleated RBC % (auto) 0.0 (0.0-0.2) /100WBC Sodium 141 (135-145) mmol/L Potassium 4.0 (3.3-5.1) mmol/L Chloride 109 H (96-108) mmol/L Carbon Dioxide 21 L (22-29) mmol/L Anion Gap 15 (12-20) BUN 10 (9-16) mg/dL Creatinine 0.85 (0.5-1.4) mg/dL Estim Creat Clear Calc 87.8 Estimated GFR > 60 Random Glucose 75 (60-115) mg/dL Calcium 9.8 D (8.4-10.2) mg/dL Magnesium 2.3 (1.6-2.6) mg/dL Total Bilirubin 0.4 (0.0-1.0) mg/dL AST 43 H D (5-31) U/L ALT 39 H (0-31) U/L Alkaline Phosphatase 123 H D (39-117) U/L Total Protein 8.1 H (6.5-8.0) g/dL Albumin 4.6 (3.5-5.0) g/dL Lipase 23 (8-78) U/L Urine Color Urine Appearance Urine pH (5.0-8.0) Ur Specific [employer] (1.005-1.025) Urine Protein (NEG-TRACE) MG/DL Urine Glucose (UA) (NEG) MG/DL Urine Ketones (NEG) MG/DL Urine Blood (NEG) Urine Nitrite (NEG) Ur Leukocyte Esterase (NEG) Urine RBC (0) /HPF Urine WBC (0-4) /HPF Ur Squamous Epith Cells /LPF Calcium Oxalate Crystal /LPF Urine Bacteria /LPF Urine Test (NEGATIVE) Influenza Type A (PCR) NEGATIVE (Negative) Influenza Type B (PCR) NEGATIVE (Negative) RSV RNA Qual (PCR) NEGATIVE (Negative) SARS-CoV-2 RNA (RT-PCR) NEGATIVE (Negative) 03/04/21 03/04/21 Range/Units 22:48 22:48 WBC (4.8-10.8) X10*3/uL RBC (4.20-5.50) X10*6/uL Hgb (12.0-16.0) g/dl Hct (37.0-47.0) % MCV (80.0-98.0) fL MCH (27.0-33.0) pg MCHC (31.0-35.0) g/dl RDW (11.0-16.0) % Plt Count (160-400) X10*3/uL MPV (9.4-12.3) fL Immature Gran % (Auto) (0.0-0.4) % Neut % (Auto) (45-73) % Lymph % (Auto) (20-40) % [place] % (Auto) (2-11) % Eos % (Auto) (0-4) % Baso % (Auto) (0-2) % Lymph # (Auto) (1.2-4.9) X10*3/uL [place] # (Auto) (0.1-1.2) X10*3/uL Eos # (Auto) (0.0-0.4) X10*3/uL Baso # (Auto) (0.0-0.2) X10*3/uL Abs Immat Gran (auto) (0.00-0.03) X10*3/uL Absolute Neuts (auto) (2.0-8.3) x10*3/uL Absolute Nucleated RBC (0.0-0.012) X10*3/uL Nucleated RBC % (auto) (0.0-0.2) /100WBC Sodium (135-145) mmol/L Potassium (3.3-5.1) mmol/L Chloride (96-108) mmol/L Carbon Dioxide (22-29) mmol/L Anion Gap (12-20) BUN (9-16) mg/dL Creatinine (0.5-1.4) mg/dL Estim Creat Clear Calc Estimated GFR Random Glucose (60-115) mg/dL Calcium (8.4-10.2) mg/dL Magnesium (1.6-2.6) mg/dL Total Bilirubin (0.0-1.0) mg/dL AST (5-31) U/L ALT (0-31) U/L Alkaline Phosphatase (39-117) U/L Total Protein (6.5-8.0) g/dL Albumin (3.5-5.0) g/dL Lipase (8-78) U/L Urine Color YELLOW Urine Appearance HAZY Urine pH 6.0 (5.0-8.0) Ur Specific [employer] >= 1.030 H (1.005-1.025) Urine Protein TRACE (NEG-TRACE) MG/DL Urine Glucose (UA) NEG (NEG) MG/DL Urine Ketones 5 (NEG) MG/DL Urine Blood NEG (NEG) Urine Nitrite NEG (NEG) Ur Leukocyte Esterase 1+ H (NEG) Urine RBC 0 (0) /HPF Urine WBC 1-4 (0-4) /HPF Ur Squamous Epith Cells 1+ /LPF Calcium Oxalate Crystal TRACE /LPF Urine Bacteria 1+ /LPF Urine Test NEGATIVE (NEGATIVE) Influenza Type A (PCR) (Negative) Influenza Type B (PCR) (Negative) RSV RNA Qual (PCR) (Negative) SARS-CoV-2 RNA (RT-PCR) (Negative) Discharge Plan Discharge Clinical Impression: Gastroenteritis Patient Disposition: Home, Self-Care Instructions: Gastroenteritis (ED) Additional Instructions: Your blood work was reassuring today in the emergency department We sent off parasitic/mosquito borne illness labs, these results should be back in 48-72 hours, we will contact you with positive results only Zofran as an antinausea medication, take as needed. Please stay hydrated at home Practice a bland diet, avoid caffeine, sweets, spicy foods or others that may upset her stomach If symptoms persist or worsen, you hav constant or persistent nausea/vomiting, worsening abdominal pain, develop fever, or worsening rash please return to the ED You may apply topical Benadryl cream or topical hydrocortisone to rash Please with doctor and GI doctor, call for appointment Tu an?lisis de jovita fue reconfortante hoy en el departamento de emergencias Enviamos laboratorios de enfermedades transmitidas por par?sitos / mosquitos, estos resultados deber?an estar de vuelta en 48-72 horas, nos comunicaremos con usted solo con resultados positivos Zofran leandra medicamento contra las n?useas, t?lockett seg?n sea necesario. Mantente hidratado en casa Practique mariah dieta blanda, evite la cafe?na, los dulces, las comidas picantes u otras que puedan causarle malestar estomacal. Si los s?ntomas persisten o empeoran, tiene n?useas / v?mitos constantes o persistentes, dolor abdominal que empeora, tiene fiebre o empeora el sarpullido, vuelva al servicio de urgencias. Puede aplicar crema t?pica de Benadryl o hidrocortisona t?pica en el sarpullido. Por favor con el m?dico y el m?dico gastrointestinal, llame para programar mariah hyacinth. Prescriptions: No Action nitrofurantoin monohyd/m-cryst [Macrobid] 100 mg capsule 100 mg PO Q12H 10 Days Qty: 20 RF: 0 ondansetron 4 mg tablet,disintegrating 4 mg PO Q6H PRN (Reason: nausea and vomiting) Qty: 7 RF: 0 Referrals: Sameer Dela Cruz [Physician] - 5 days Beverly Pink MD [Primary Care Provider] - 2 days Print Language: Chinese
[2021-03-04 22:28] LABS: Magnesium 2.3 mg/dL (1.6-2.6)
[2021-03-04 22:55] LABS: Appearance Urine HAZY; Color Urine YELLOW; Glucose Urine UA NEG (NEG); Leukocyte Esterase Urine 1+ (NEG); Nitrite Urine NEG (NEG); Specific Gravity - Urine >= 1.030 (1.005-1.025); UACC Culture Trigger YES; Urine Blood NEG (NEG); Urine Ketones 5 MG/DL (NEG); Urine Protein TRACE MG/DL (NEG-TRACE)
[2021-03-04 22:57] LABS: UPreg QC Valid YES; Urine Pregnancy NEGATIVE (NEGATIVE)
[2021-03-04 23:04] LABS: Bacteria Urine 1+ /LPF; Calcium Oxalate Crystals Urine TRACE /LPF; RBC Urine 0 /HPF (0); Squamous Epithelial Cell Urine 1+ /LPF
[2021-03-04] MEDS: 0.9 % Sodium Chloride 1,000 ML 999 ML IVCONT (23:22)
[2021-03-04] MEDS: ondansetron HCL 4 MG/2 ML VIAL IVPUSH (23:24)
[2021-03-04] MEDS: Famotidine/PF 20 MG/2 ML VIAL IVPUSH (23:24)
[2021-03-04] MEDS: Magnesium Hydrox/Alum Hydrox 30 ML ORAL.SUSP PO (23:26)
[2021-03-04] MEDS: Lidocaine HCl Viscous 2 % 15 ML SOLUTION MUCOUS MEM (23:26)
[2021-03-05 00:47] VITALS: BP 109/63; PULSE 97; RESP 20
--- NOTE | 2021-03-05 00:47 | PC.NURSE ---
pt no sign of distress pain 0/10. reviewed discharge instructions .
== END 2021-03-05 00:54 | disposition home or self-care (01) ==
PROVIDERS: Physician Assistant; Emergency Provider Emergency Medicine; PCP Internal Medicine
DX: K52.9 Noninfective gastroenteritis and colitis, unspecified (principal); Z20.822 Contact with and (suspected) exposure to COVID-19
CPT/HCPCS: 0241U; 36415; 80053; 81001; 81003; 81025; 83690; 83735; 85025; 87086; 96361; 96374; 96375; 99284; J2405

== ENCOUNTER 2021-05-19 08:26 | Outpatient (REF) | payer OTHER, SELFPAY ==
--- NOTE | 2021-05-19 13:37 | MHC.AU.AHA ---
Adult Audiological Evaluation Date of Visit: 05/19/21 Tobacco Sizer Used: ASL Translated by Mother Reason for Appointment: Cali was seen for an audiological re-evaluation to monitor the status of her longstanding severe to profound sensorineural hearing loss bilaterally. Cali reports consistent use of hearing devices and speaks ASL. She denies any significant changes in her hearing or general medical history. [place] [facility] [place] Right ear: Moderately severe sloping to profound sensorineural hearing loss from 250-8000 Hz. Left ear: Severe sloping to profound sensorineural hearing loss from 250-8000 Hz. Medical History: Medical History: Unremarkable Medical History Medical History: Allergies: azithromycin, ciprofloxacin, levofloxacin, sulfamethizode, trimethoprim, vancomycin, ceftriaxone Medication List: Hearing Instrument History- Right Ear: Power Transformer Inspector: Phonak Model: Jocelyn P70-UP Serial Number: [id number] Battery Size: 675 Repair Warranty: 09/01/2017 Loss and Damage Warranty: Dispensed By: [facility] Date of Fittin06/19/2015 Hearing Instrument History- Left Ear: Power Transformer Inspector: Phonak Model: Jocelyn P70-UP Serial Number: [id number] Battery Size: 675 Warranty: 04/17/2014 Loss and Damage Warranty: Dispensed By: [facility] Date of Fittin02/07/2012 Otoscopy: Right Ear: Unremarkable Left Ear: Unremarkable Tympanometry: Tympanometry performed due to: To assess integrity of the middle ear system Right Ear: Normal Middle Ear System (Type A) Left Ear: Normal Middle Ear System (Type A) Hearing Evaluation: Transducer(s) Used: Insert Earphones, Bone Conduction Method: Conventional Audiometry Stimuli Used: Pure Tones Right Ear: Description of Hearing: Moderately severe sloping to profound sensorineural hearing loss from 250-8000 Hz. Left Ear: Description of Hearing: Severe sloping to profound sensorineural hearing loss from 250-8000 Hz. Speech Recognition Threshold (SRT): Method Used: Not performed at today's visit. Word Discrimination: Method: Not performed at today's visit. Comparison: Compared to the most recent evaluation: Hearing is stable. Interpretation of Results: Stable hearing thresholds when compared to previous audiogram. Did not perform speech testing due to longstanding history of hearing loss without speech understanding abilities. Normal middle ear function. Recommendations: Audiological re-evaluation in one year. Medical clearance from a physician is required before fitting. See Hearing Aid Evaluation report for more information. Current hearing aids were cleaned and biologic listening check revealed the devices are in good working order. Due to the age of the current devices and Cali's known bilateral hearing loss, new hearing devices are recommended due to improved technology and sound quality. Patient agreed and new devices will be ordered. Patient should return in one year to monitor her hearing status. Diagnosis: Primary Diagnosis: H90.3 Bilateral Sensorineural Hearing Loss Services Performed: Pure Tone- Air & Bone (CPT 50115) Tympanometry (CPT 14726) Signature: Student/Clinical Fellow: Yes: Rhoda Fox B.A., Liliane Evaporator Repairer I have reviewed/agreed with student/fellow documentation: Yes Provider: Liliane Francisco, [facility]
--- NOTE | 2021-05-19 13:39 | MHC.AU.MED ---
Medical Clearance for Hearing Instrumentation Date: 05/19/21 Patient Name: Cali Hill Date of : 1995 Referring Provider: Beverly Pink MD We have seen your patient on 05/19/21 and have determined that they are a candidate for amplification (See accompanying report). Specifically, they would benefit from: Hearing aid use in both ears There is a statute that addresses Medical Evaluation Requirements prior to fitting a patient with a hearing aid. According to [place] statute [facility] CMR:6.03(1), (a) General. Except as provided in 265 CMR 6.03(1)(b), a hearing care professional shall not sell a hearing aid unless the prospective user has presented to the hearing care professional a written statement signed by a licensed physician that states that the patient's hearing loss has been medically evaluated and the patient may be considered a candidate for a hearing aid. The medical evaluation must have taken place within the preceding six months. Please note: Due to the [place] Statute referenced above, we cannot accept a signature other than that of a licensed physician. CHEESE PACKER and PA signatures cannot be accepted. I am in agreement with the above recommendation. There is no medical contraindication for hearing instrumentation. Physician Signature Date Physician Name (Printed)
--- NOTE | 2021-05-19 13:40 | MHC.AU.HAS ---
Hearing Aid Evaluation Date of Visit: 05/19/21 Panel Maker Used: ASL Translated by Mother Historical Information: Description of Hearing: Right ear: moderately severe sloping to profound sensorineural hearing loss 250-8000 Hz. Left ear: Severe sloping to profound sensorineural hearing loss from 250-8000 Hz. Current personal amplification information, if applicable: Phonak Jocelyn S III UP 675 in pink with microsonic mold and tube lock Summary: Patient was seen for an audiological re-evaluation, which indicated a stable severe to profound, asymmetric hearing loss. Her current devices are over 5 years old. Due to the age of the devices, in addition to the patient's hearing loss, new hearing devices are recommended to help facilitate improved communication. The patient liked the idea of improved sound quality and technology options, including the use of bluetooth. Discussed hearing aid styles, colors, and other hearing aid options. Discussed earmold styles and colors. Earmold impressions were taken without incident bilaterally. Patient chose to pursue new hearing devices with custom earmolds. Phonak Jocelyn P 70 UP 675 in the color P8 (black) will be ordered with custom earmolds in the stripe pattern with the colors pink, purple, blue, green, and yellow. Hearing Aid Prescription: Based on the individual?s shared listening needs, communication environments, dexterity, desire for connectivity, and personal preferences, the following prescription for amplification has been made: Right ear: Director Data Architecture: Phonak Model: Jocelyn P70-UP Battery Size: 675 Color: Black (P8) Tubing: Tube lock Type of Mold: Microsonic shell mold Left ear: Left ear prescription to be same as Right Hearing Aid above: Director Data Architecture: Phonak Model: Jocelyn P70-UP Battery Size: 675 Color: Black (P8) Tubing: Tube lock Type of Mold: Microsonic shell mold Plan of Care: Medical Clearance to be requested from PCP/ENT. Hearing Instrument Fitting to be scheduled when materials arrive. Pending medical clearance, hearing aids will be ordered. Patient will be called to schedule hearing aid fitting when materials have arrived. Primary Diagnosis: H90.3 Bilateral Sensorineural Hearing Loss Signature: Student/Clinical Fellow: Yes: Rhoda Fox B.A., Liliane Supervisor Instrument Repair I have reviewed/agreed with student/fellow documentation: Yes Provider: Liliane Francisco, [facility]
== END 2021-05-19 08:27 | disposition home or self-care (01) ==
LOC: HO.SH 08:26
PROVIDERS: Visit Provider Internal Medicine
DX: Z01.118 Encounter for examination of ears and hearing with other abnormal findings (principal); Z46.1 Encounter for fitting and adjustment of hearing aid; H90.3 Sensorineural hearing loss, bilateral
CPT/HCPCS: 92553; 92567; 92591; 92593; V5275

== ENCOUNTER 2021-06-11 13:51 | Outpatient (REF) | payer OTHER, SELFPAY | END 2021-06-11 13:52 | disposition home or self-care (01) | LOC: HO.HAP 13:51 | PROVIDERS: Visit Provider Internal Medicine | DX: Z46.1 Encounter for fitting and adjustment of hearing aid (principal); H90.3 Sensorineural hearing loss, bilateral | CPT/HCPCS: V5011; V5020; V5160; V5261; V5264; V5266 ==

== ENCOUNTER 2022-03-23 14:19 | Outpatient (REF) | payer OTHER, SELFPAY | END 2022-03-23 14:20 | disposition home or self-care (01) | LOC: HO.HAP 14:19 | PROVIDERS: Visit Provider Internal Medicine | DX: Z46.1 Encounter for fitting and adjustment of hearing aid (principal); H90.3 Sensorineural hearing loss, bilateral | CPT/HCPCS: 92592; V5266 ==

== ENCOUNTER 2022-04-22 16:36 | Emergency (ER) | payer OTHER, SELFPAY ==
--- NOTE | 2022-04-22 16:39 | ED_ITS ---
HPI - Nausea/Vomiting/Diarrhea General Chief complaint: Nausea/Vomiting/Diarrhea Stated complaint: ?food poisoning Time Seen by Provider: 04/22/22 20:46 Related Data Previous Rx's Medication Instructions Recorded nitrofurantoin 100 mg PO Q12H 10 days #20 caps 04/27/20 monohydrate/macrocrystals 100 mg capsule (Macrobid) ondansetron 4 mg disintegrating 4 mg PO Q6H PRN nausea and 04/27/20 tablet vomiting #7 tabs Allergies Allergy/AdvReac Type Severity Reaction Status Date / Time azithromycin [AZITHROMYCIN] Allergy Unknown UNKNOWN Verified 04/22/22 16:39 ciprofloxacin [CIPROFLOXACIN] Allergy Unknown UNKNOWN Verified 04/22/22 16:39 levofloxacin [LEVOFLOXACIN] Allergy Unknown UNKNOWN Verified 04/22/22 16:39 sulfamethizole Allergy Unknown UNKNOWN Verified 04/22/22 16:39 [SULFAMETHIZOLE] trimethoprim [TRIMETHOPRIM] Allergy Unknown UNKNOWN Verified 04/22/22 16:39 vancomycin [VANCOMYCIN] Allergy Unknown UNKNOWN Verified 04/22/22 16:39 ceftriaxone [CEFTRIAXONE] AdvReac Unknown ITCHING Verified 04/22/22 16:39 PMFSH Past Medical History Medical History Depression Immunodeficiency Social History Social History Alcohol intake: never Patient Tobacco Use Status: Never used Tobacco Smoked in Last 30 Days: No Use of substances other than those prescribed or required for medical reasons: No Advance Directives: No Advance Directives Information Provided: No Patient : No Physical Exam Vital Signs: Vital Signs: Last Vital Signs Temp 98.5 F 04/22/22 20:29 Pulse 106 H 04/22/22 20:29 Resp 17 04/22/22 20:29 BP 123/79 04/22/22 20:29 Pulse Ox 98 04/22/22 20:29 O2 Del Method 04/22/22 20:29 BMI result Body Mass Index 22.8 Course Course Course Narrative: RME - 27 yo deaf female communicates with ASL presents to the ER with diffuse abd pain and vomiting after eating [place] food last night. No diarrhea. No fevers but sweating at home shortly after eating the [place] last night. HR 101 in triage, BP stable, appears nontoxic. Will get labs to r/o dehydration. Medications Administered Discontinued Medications Generic Name Dose Route Start Last Admin Trade Name Ebenezer PRN Reason Stop Dose Admin Sodium Chloride 1,000 mls @ 999 mls/hr 04/22/22 21:00 04/22/22 23:38 Ns IVCONT 04/22/22 22:00 Infused .Q1H1M SONIDO Infusion Diphenhydramine HCl 25 mg/ 50.5 mls @ 200 mls/hr 04/22/22 21:15 04/22/22 22:09 Sodium Chloride IV Infused ONCE SONIDO Infusion Metoclopramide HCl 10 mg 04/22/22 20:57 04/22/22 21:35 Metoclopramide Hcl 10 Mg/2 Ml Vial IVPUSH 04/22/22 20:58 10 mg ONCE ONE Administration Medical Decision Making Lab Data 04/22/22 17:54 04/22/22 17:54 Labs: Lab Results 04/22/22 04/22/22 04/22/22 Range/Units 17:54 17:54 17:57 WBC 6.2 (4.8-10.8) X10*3/uL RBC 5.78 H (4.20-5.50) X10*6/uL Hgb 12.9 (12.0-16.0) g/dl Hct 42.6 (37.0-47.0) % MCV 73.7 L (80.0-98.0) fL MCH 22.3 L (27.0-33.0) pg MCHC 30.3 L (31.0-35.0) g/dl RDW 15.5 (11.0-16.0) % Plt Count 346 (160-400) X10*3/uL MPV 11.1 (9.4-12.3) fL Immature Gran % (Auto) 1.1 H (0.0-0.4) % Neut % (Auto) 74.5 H (45-73) % Lymph % (Auto) 13.4 L (20-40) % [place] % (Auto) 8.1 (2-11) % Eos % (Auto) 2.1 (0-4) % Baso % (Auto) 0.8 (0-2) % Lymph # (Auto) 0.8 L (1.2-4.9) X10*3/uL [place] # (Auto) 0.5 (0.1-1.2) X10*3/uL Eos # (Auto) 0.1 (0.0-0.4) X10*3/uL Baso # (Auto) 0.1 (0.0-0.2) X10*3/uL Abs Immat Gran (auto) 0.07 H (0.00-0.03) X10*3/uL Absolute Neuts (auto) 4.6 (2.0-8.3) x10*3/uL Absolute Nucleated RBC 0.000 (0.0-0.012) X10*3/uL Nucleated RBC % (auto) 0.0 (0.0-0.2) /100WBC Sodium 142 (135-145) mmol/L Potassium 3.9 (3.3-5.1) mmol/L Chloride 111 H (96-108) mmol/L Carbon Dioxide 20 L (22-29) mmol/L Anion Gap 15 (12-20) BUN 12 (9-16) mg/dL Creatinine 0.85 (0.5-1.4) mg/dL Estim Creat Clear Calc 99.4 Estimated GFR > 60 Random Glucose 109 (60-115) mg/dL Calcium 9.6 (8.4-10.2) mg/dL Magnesium 2.2 (1.6-2.6) mg/dL Total Bilirubin 0.3 (0.0-1.0) mg/dL Direct Bilirubin < 0.2 (0.0-0.5) mg/dL AST 30 (5-31) U/L ALT 40 H (0-31) U/L Alkaline Phosphatase 160 H (39-117) U/L Total Protein 7.9 (6.5-8.0) g/dL Albumin 5.0 (3.5-5.0) g/dL Urine Color Urine Appearance Urine pH (5.0-9.0) Ur Specific [place] (1.005-1.025) Urine Protein (Neg-Trace) mg/dL Urine Glucose (UA) (Negative) mg/dL Urine Ketones (Negative) mg/dL Urine Blood (Negative) Urine Nitrite (Negative) Ur Leukocyte Esterase (Negative) Urine RBC (0-2) /HPF Urine WBC (0-5) /HPF Ur Squamous Epith Cells (0-2) /HPF Urine Bacteria (None Seen) Hyaline Casts (0-2) /LPF Urine Test (NEGATIVE) COVID-19 (GEORGE) (Negative) COVID-19 Clin Com Influenza Type A (ELVIN) Negative (Negative) Influenza Type B (ELVIN) Negative (Negative) Influenza A & B Note See Note 04/22/22 04/22/22 04/22/22 Range/Units 17:57 17:58 17:58 WBC (4.8-10.8) X10*3/uL RBC (4.20-5.50) X10*6/uL Hgb (12.0-16.0) g/dl Hct (37.0-47.0) % MCV (80.0-98.0) fL MCH (27.0-33.0) pg MCHC (31.0-35.0) g/dl RDW (11.0-16.0) % Plt Count (160-400) X10*3/uL MPV (9.4-12.3) fL Immature Gran % (Auto) (0.0-0.4) % Neut % (Auto) (45-73) % Lymph % (Auto) (20-40) % [place] % (Auto) (2-11) % Eos % (Auto) (0-4) % Baso % (Auto) (0-2) % Lymph # (Auto) (1.2-4.9) X10*3/uL [place] # (Auto) (0.1-1.2) X10*3/uL Eos # (Auto) (0.0-0.4) X10*3/uL Baso # (Auto) (0.0-0.2) X10*3/uL Abs Immat Gran (auto) (0.00-0.03) X10*3/uL Absolute Neuts (auto) (2.0-8.3) x10*3/uL Absolute Nucleated RBC (0.0-0.012) X10*3/uL Nucleated RBC % (auto) (0.0-0.2) /100WBC Sodium (135-145) mmol/L Potassium (3.3-5.1) mmol/L Chloride (96-108) mmol/L Carbon Dioxide (22-29) mmol/L Anion Gap (12-20) BUN (9-16) mg/dL Creatinine (0.5-1.4) mg/dL Estim Creat Clear Calc Estimated GFR Random Glucose (60-115) mg/dL Calcium (8.4-10.2) mg/dL Magnesium (1.6-2.6) mg/dL Total Bilirubin (0.0-1.0) mg/dL Direct Bilirubin (0.0-0.5) mg/dL AST (5-31) U/L ALT (0-31) U/L Alkaline Phosphatase (39-117) U/L Total Protein (6.5-8.0) g/dL Albumin (3.5-5.0) g/dL Urine Color Yellow Urine Appearance Cloudy Urine pH 5.5 (5.0-9.0) Ur Specific [place] >= 1.030 H (1.005-1.025) Urine Protein Trace (Neg-Trace) mg/dL Urine Glucose (UA) Negative (Negative) mg/dL Urine Ketones Negative (Negative) mg/dL Urine Blood Negative (Negative) Urine Nitrite Negative (Negative) Ur Leukocyte Esterase Moderate (2+) H (Negative) Urine RBC 0-2 (0-2) /HPF Urine WBC 21-50 H (0-5) /HPF Ur Squamous Epith Cells 11-20 (0-2) /HPF Urine Bacteria None Seen (None Seen) Hyaline Casts 0-2 (0-2) /LPF Urine Test NEGATIVE (NEGATIVE) COVID-19 (GEORGE) Negative (Negative) COVID-19 Clin Com See Note Influenza Type A (ELVIN) (Negative) Influenza Type B (ELVIN) (Negative) Influenza A & B Note Discharge Plan Discharge Clinical Impression: Vomiting Patient Disposition: Home, Self-Care Instructions: Acute Nausea and Vomiting (ED) Prescriptions: No Action nitrofurantoin monohyd/m-cryst [Macrobid] 100 mg capsule 100 mg PO Q12H 10 Days Qty: 20 0RF Rx Instructions: must administer with a meal/food ondansetron 4 mg tablet,disintegrating 4 mg PO Q6H PRN (Reason: nausea and vomiting) Qty: 7 0RF Referrals: Beverly Pink MD [Primary Care Provider] - 3 days Stand Alone Forms: Work/School Release Interventions: ED Discharge Assessment Last Done: 04/22/22 23:42 Discharge Date/Time: 04/22/22 23:49
[2022-04-22 16:40] VITALS: BP 115/58; PULSE 98; RESP 16; TEMP 36.8; O2SAT 98; BMI 22.8
[2022-04-22 18:03] LABS: MANUAL DIFF FLAG NO
[2022-04-22 18:11] LABS: Appearance Urine Cloudy; Color Urine Yellow; Glucose Urine UA Negative (Negative); Leukocyte Esterase Urine Moderate (2+) (Negative); Nitrite Urine Negative (Negative); PH 5.5 (5.0-9.0); Specific Gravity - Urine >= 1.030 (1.005-1.025); UMIC TRIGGER UACC YES; Urine Blood Negative (Negative); Urine Ketones Negative (Negative); Urine Protein Trace mg/dL (Neg-Trace)
[2022-04-22 18:12] LABS: UPreg QC Valid YES; Urine Pregnancy NEGATIVE (NEGATIVE)
[2022-04-22 18:13] LABS: Bacteria Urine None Seen (None Seen); Hyaline Casts Urine 0-2 /LPF (0-2); RBC Urine 0-2 /HPF (0-2); UACC Culture Trigger YES; WBC Urine 21-50 /HPF (0-5)
[2022-04-22 18:21] LABS: Alanine Aminotransferase 40 U/L (0-31); Alkaline Phosphatase 160 U/L (39-117); Anion Gap 15 (12-20); Aspartate Amino Transferase 30 U/L (5-31); Bilirubin Direct < 0.2 mg/dL (0.0-0.5); Bilirubin Total 0.3 mg/dL (0.0-1.0); Blood Urea Nitrogen 12 mg/dL (9-16); Calcium 9.6 mg/dL (8.4-10.2); Carbon Dioxide 20 mmol/L (22-29); Chloride 111 mmol/L (96-108); Creatinine Clr Calc Pharmacy 99.4; Estimated Glomerular Filt Rate > 60; Glucose Random 109 mg/dL (60-115); Magnesium 2.2 mg/dL (1.6-2.6); Potassium 3.9 mmol/L (3.3-5.1); Sodium 142 mmol/L (135-145); Total Protein 7.9 g/dL (6.5-8.0)
[2022-04-22 18:25] LABS: COVID-19 Test Negative (Negative); IDNOW Serial# 16C4AD1C; IDNOW Serial# BCCEAD1C; Influenza A Negative (Negative); Influenza B2 Negative (Negative)
[2022-04-22 18:28] LABS: Basophils Absolute Auto 0.1 X10*3/uL (0.0-0.2); Basophils Percent Auto 0.8 % (0-2); Eosinophils Absolute Auto 0.1 X10*3/uL (0.0-0.4); Eosinophils Percent Auto 2.1 % (0-4); Hematocrit 42.6 % (37.0-47.0); Hemoglobin 12.9 g/dl (12.0-16.0); Imm Gran Abs Auto 0.07 X10*3/uL (0.00-0.03); Imm Gran Pct Auto 1.1 % (0.0-0.4); Lymphocytes Absolute Auto 0.8 X10*3/uL (1.2-4.9); Lymphocytes Percent Auto 13.4 % (20-40); Mean Corpuscular HGB Conc 30.3 g/dl (31.0-35.0); Mean Corpuscular Hemoglobin 22.3 pg (27.0-33.0); Mean Corpuscular Volume 73.7 fL (80.0-98.0); Mean Platelet Volume 11.1 fL (9.4-12.3); Monocytes Absolute Auto 0.5 X10*3/uL (0.1-1.2); Monocytes Percent Auto 8.1 % (2-11); Neutrophils Absolute Auto 4.6 x10*3/uL (2.0-8.3); Neutrophils Percent Auto 74.5 % (45-73); Platelet Count 346 X10*3/uL (160-400); Red Blood Count 5.78 X10*6/uL (4.20-5.50); Red Cell Distribution Width 15.5 % (11.0-16.0); White Blood Count 6.2 X10*3/uL (4.8-10.8)
--- NOTE | 2022-04-22 20:08 | PC.NURSE ---
PT A&Ox4, manager of patient used. PT reports 7/10 throbbing upper abd pain starting last night. Reports last BM was yesterday, denies any burning or frequent urination. ABD tender to touch, + bowel sounds x4. IV established. Meds given as documented.
[2022-04-22 20:29] VITALS: BP 123/79; PULSE 106; RESP 17; TEMP 36.9; O2SAT 98
--- NOTE | 2022-04-22 20:52 | ED.NAVMDI ---
HPI - Nausea/Vomiting/Diarrhea General Chief complaint: Nausea/Vomiting/Diarrhea Stated complaint: ?food poisoning Time Seen by Provider: 04/22/22 20:46 Source: patient Mode of arrival: ambulatory History of Present Illness HPI Narrative: Pt ptresented c/o nausea and vomiting and itchiness,hx obtained via park interpreter,states she ate [place] food and since then she is been expering nausea elicited complaint: nausea, vomiting and diarrhea Onset (ago): day(s) (1) Description of vomiting: watery Associated nausea: Yes Radiation: diffuse Quality: cramping Related Data Previous Rx's Medication Instructions Recorded nitrofurantoin 100 mg PO Q12H 10 days #20 caps 04/27/20 monohydrate/macrocrystals 100 mg capsule (Macrobid) ondansetron 4 mg disintegrating 4 mg PO Q6H PRN nausea and 04/27/20 tablet vomiting #7 tabs Allergies Allergy/AdvReac Type Severity Reaction Status Date / Time azithromycin [AZITHROMYCIN] Allergy Unknown UNKNOWN Verified 04/22/22 16:39 ciprofloxacin [CIPROFLOXACIN] Allergy Unknown UNKNOWN Verified 04/22/22 16:39 levofloxacin [LEVOFLOXACIN] Allergy Unknown UNKNOWN Verified 04/22/22 16:39 sulfamethizole Allergy Unknown UNKNOWN Verified 04/22/22 16:39 [SULFAMETHIZOLE] trimethoprim [TRIMETHOPRIM] Allergy Unknown UNKNOWN Verified 04/22/22 16:39 vancomycin [VANCOMYCIN] Allergy Unknown UNKNOWN Verified 04/22/22 16:39 ceftriaxone [CEFTRIAXONE] AdvReac Unknown ITCHING Verified 04/22/22 16:39 Review of Systems Constitutional: Constitutional: Reports no additional constitutional complaints Cardiovascular: Cardiovascular: Reports no additional cardiovascular complaints Gastrointestinal: Gastrointestinal: Reports abdominal pain, Reports nausea and Reports vomiting [facility] Past Medical History [facility] Narrative: deaf and mute,asthma Medical History Depression Immunodeficiency Social History Social History Alcohol intake: never Patient Tobacco Use Status: Never used Tobacco Smoked in Last 30 Days: No Use of substances other than those prescribed or required for medical reasons: No Advance Directives: No Advance Directives Information Provided: No Patient : No Physical Exam Vital Signs: Vital Signs: Last Vital Signs Temp 98.5 F 04/22/22 20:29 Pulse 106 H 04/22/22 20:29 Resp 17 04/22/22 20:29 BP 123/79 04/22/22 20:29 Pulse Ox 98 04/22/22 20:29 O2 Del Method 04/22/22 20:29 BMI result Body Mass Index 22.8 Const: General: cooperative and comfortable Nutritional Appearance: average body habitus and well nourished Orientation/consciousness: patient oriented x3 Limitations: no limitations HEENT: Head: Yes normal to inspection General nose exam: Normal external nose present Face and sinus: Yes normal facial exam Mouth: Normal oral and palatal mucosa present Throat: Yes posterior oropharynx normal Neck: Neck: Yes normal visual inspection and Yes full ROM Chest: Chest palpation & inspection: normal inspection of the chest Resp: Effort & Inspection: normal respiratory effort Auscultation: clear to auscultation bilaterally Cardio: Palpation: normal PMI Rate: regular rate Rhythm: regular rhythm GI: Inspection: Yes normal to inspection Palpation (GI): Soft to palpation, not firm and nontender Percussion: Yes normal to percussion : General: Yes no CVA tenderness Back/Spine/Pelvis: Back: no CVA tenderness Skin: General skin exam: no rashes or lesions noted, elasticity normal and turgor normal Lesions: no lesions Rashes: no rashes Neuro: General: patient oriented x3 Cranial nerves: Yes Bilaterally intact EOM present Cognition (Neuro): normal cognition Course Reevaluation(s) Reevaluation #1: feels better asyntomatic Time: 23:07 Medications Administered Generic Name Dose Route Start Last Admin Trade Name Freq PRN Reason Stop Dose Admin Diphenhydramine HCl 25 mg/ 50.5 mls @ 200 mls/hr 04/22/22 21:15 04/22/22 22:09 Sodium Chloride IV Infused ONCE SONIDO Infusion Discontinued Medications Generic Name Dose Route Start Last Admin Trade Name Freq PRN Reason Stop Dose Admin Sodium Chloride 1,000 mls @ 999 mls/hr 04/22/22 21:00 04/22/22 21:31 Ns IVCONT 04/22/22 22:00 999 mls/hr .Q1H1M SONIDO Administration Metoclopramide HCl 10 mg 04/22/22 20:57 04/22/22 21:35 Metoclopramide Hcl 10 Mg/2 Ml Vial IVPUSH 04/22/22 20:58 10 mg ONCE ONE Administration Medical Decision Making Medical Decision Making [facility] Narrative: Patient presented with nausea vomiting we will get labs IV fluid and reassess Differential Diagnosis Differential Diagnoses: The differential diagnosis associated with the presentation includes Gastroenteritis ,diverticulitis ,peptic ulcer disease Admission/Observation Consideration of admission/observation: Escalation of care including admission/observation considered Lab Data [facility] Lab Attestation statement: I reviewed the patient's lab results. 04/22/22 17:54 04/22/22 17:54 Labs: Lab Results 04/22/22 04/22/22 04/22/22 Range/Units 17:54 17:54 17:57 WBC 6.2 (4.8-10.8) X10*3/uL RBC 5.78 H (4.20-5.50) X10*6/uL Hgb 12.9 (12.0-16.0) g/dl Hct 42.6 (37.0-47.0) % MCV 73.7 L (80.0-98.0) fL MCH 22.3 L (27.0-33.0) pg MCHC 30.3 L (31.0-35.0) g/dl RDW 15.5 (11.0-16.0) % Plt Count 346 (160-400) X10*3/uL MPV 11.1 (9.4-12.3) fL Immature Gran % (Auto) 1.1 H (0.0-0.4) % Neut % (Auto) 74.5 H (45-73) % Lymph % (Auto) 13.4 L (20-40) % [place] % (Auto) 8.1 (2-11) % Eos % (Auto) 2.1 (0-4) % Baso % (Auto) 0.8 (0-2) % Lymph # (Auto) 0.8 L (1.2-4.9) X10*3/uL [place] # (Auto) 0.5 (0.1-1.2) X10*3/uL Eos # (Auto) 0.1 (0.0-0.4) X10*3/uL Baso # (Auto) 0.1 (0.0-0.2) X10*3/uL Abs Immat Gran (auto) 0.07 H (0.00-0.03) X10*3/uL Absolute Neuts (auto) 4.6 (2.0-8.3) x10*3/uL Absolute Nucleated RBC 0.000 (0.0-0.012) X10*3/uL Nucleated RBC % (auto) 0.0 (0.0-0.2) /100WBC Sodium 142 (135-145) mmol/L Potassium 3.9 (3.3-5.1) mmol/L Chloride 111 H (96-108) mmol/L Carbon Dioxide 20 L (22-29) mmol/L Anion Gap 15 (12-20) BUN 12 (9-16) mg/dL Creatinine 0.85 (0.5-1.4) mg/dL Estim Creat Clear Calc 99.4 Estimated GFR > 60 Random Glucose 109 (60-115) mg/dL Calcium 9.6 (8.4-10.2) mg/dL Magnesium 2.2 (1.6-2.6) mg/dL Total Bilirubin 0.3 (0.0-1.0) mg/dL Direct Bilirubin < 0.2 (0.0-0.5) mg/dL AST 30 (5-31) U/L ALT 40 H (0-31) U/L Alkaline Phosphatase 160 H (39-117) U/L Total Protein 7.9 (6.5-8.0) g/dL Albumin 5.0 (3.5-5.0) g/dL Urine Color Urine Appearance Urine pH (5.0-9.0) Ur Specific [place] (1.005-1.025) Urine Protein (Neg-Trace) mg/dL Urine Glucose (UA) (Negative) mg/dL Urine Ketones (Negative) mg/dL Urine Blood (Negative) Urine Nitrite (Negative) Ur Leukocyte Esterase (Negative) Urine RBC (0-2) /HPF Urine WBC (0-5) /HPF Ur Squamous Epith Cells (0-2) /HPF Urine Bacteria (None Seen) Hyaline Casts (0-2) /LPF Urine Test (NEGATIVE) COVID-19 (GEORGE) (Negative) COVID-19 Clin Com Influenza Type A (ELVIN) Negative (Negative) Influenza Type B (ELVIN) Negative (Negative) Influenza A & B Note See Note 04/22/22 04/22/2223 Range/Units 17:57 17:58 17:58 WBC (4.8-10.8) X10*3/uL RBC (4.20-5.50) X10*6/uL Hgb (12.0-16.0) g/dl Hct (37.0-47.0) % MCV (80.0-98.0) fL MCH (27.0-33.0) pg MCHC (31.0-35.0) g/dl RDW (11.0-16.0) % Plt Count (160-400) X10*3/uL MPV (9.4-12.3) fL Immature Gran % (Auto) (0.0-0.4) % Neut % (Auto) (45-73) % Lymph % (Auto) (20-40) % [place] % (Auto) (2-11) % Eos % (Auto) (0-4) % Baso % (Auto) (0-2) % Lymph # (Auto) (1.2-4.9) X10*3/uL [place] # (Auto) (0.1-1.2) X10*3/uL Eos # (Auto) (0.0-0.4) X10*3/uL Baso # (Auto) (0.0-0.2) X10*3/uL Abs Immat Gran (auto) (0.00-0.03) X10*3/uL Absolute Neuts (auto) (2.0-8.3) x10*3/uL Absolute Nucleated RBC (0.0-0.012) X10*3/uL Nucleated RBC % (auto) (0.0-0.2) /100WBC Sodium (135-145) mmol/L Potassium (3.3-5.1) mmol/L Chloride (96-108) mmol/L Carbon Dioxide (22-29) mmol/L Anion Gap (12-20) BUN (9-16) mg/dL Creatinine (0.5-1.4) mg/dL Estim Creat Clear Calc Estimated GFR Random Glucose (60-115) mg/dL Calcium (8.4-10.2) mg/dL Magnesium (1.6-2.6) mg/dL Total Bilirubin (0.0-1.0) mg/dL Direct Bilirubin (0.0-0.5) mg/dL AST (5-31) U/L ALT (0-31) U/L Alkaline Phosphatase (39-117) U/L Total Protein (6.5-8.0) g/dL Albumin (3.5-5.0) g/dL Urine Color Yellow Urine Appearance Cloudy Urine pH 5.5 (5.0-9.0) Ur Specific [place] >= 1.030 H (1.005-1.025) Urine Protein Trace (Neg-Trace) mg/dL Urine Glucose (UA) Negative (Negative) mg/dL Urine Ketones Negative (Negative) mg/dL Urine Blood Negative (Negative) Urine Nitrite Negative (Negative) Ur Leukocyte Esterase Moderate (2+) H (Negative) Urine RBC 0-2 (0-2) /HPF Urine WBC 21-50 H (0-5) /HPF Ur Squamous Epith Cells 11-20 (0-2) /HPF Urine Bacteria None Seen (None Seen) Hyaline Casts 0-2 (0-2) /LPF Urine Test NEGATIVE (NEGATIVE) COVID-19 (GEORGE) Negative (Negative) COVID-19 Clin Com See Note Influenza Type A (ELVIN) (Negative) Influenza Type B (ELVIN) (Negative) Influenza A & B Note Independent Historian Clinical information obtained from an independent historian. History obtained from or confirmed by: Other (mother) Tests considered The following testing was considered but not selected: ct ,got better so ct not done also yound age and normal wbc Discharge Plan Discharge Clinical Impression: Vomiting Patient Disposition: Home, Self-Care Instructions: Acute Nausea and Vomiting (ED) Prescriptions: No Action nitrofurantoin monohyd/m-cryst [Macrobid] 100 mg capsule 100 mg PO Q12H 10 Days Qty: 20 0RF Rx Instructions: must administer with a meal/food ondansetron 4 mg tablet,disintegrating 4 mg PO Q6H PRN (Reason: nausea and vomiting) Qty: 7 0RF Referrals: Beverly Pink MD [Primary Care Provider] - 3 days
[2022-04-22] MEDS: 0.9 % Sodium Chloride 1,000 ML 999 ML IVCONT (21:31)
[2022-04-22] MEDS: Metoclopramide HCl 10 MG/2 ML VIAL IVPUSH (21:35)
== END 2022-04-22 23:49 | disposition home or self-care (01) ==
PROVIDERS: Physician Assistant; Emergency Provider Emergency Medicine; PCP Internal Medicine
DX: R11.2 Nausea with vomiting, unspecified (principal); Z20.822 Contact with and (suspected) exposure to COVID-19; D84.9 Immunodeficiency, unspecified; Z79.899 Other long term (current) drug therapy
CPT/HCPCS: 80048; 80076; 81001; 81025; 83735; 85025; 87086; 87502; 87635; 96361; 96374; 96375; 99284; 99285; J1200; J2765

== ENCOUNTER 2022-07-21 14:23 | Outpatient (REF) | payer OTHER, SELFPAY | END 2022-07-21 14:24 | disposition home or self-care (01) | LOC: HO.HAP 14:23 | PROVIDERS: Visit Provider Internal Medicine | DX: Z46.1 Encounter for fitting and adjustment of hearing aid (principal); H90.3 Sensorineural hearing loss, bilateral | CPT/HCPCS: V5266 ==

== ENCOUNTER 2022-07-21 14:27 | Outpatient (REF) | payer OTHER, SELFPAY | END 2022-07-21 14:28 | disposition home or self-care (01) | LOC: HO.HAP 14:27 | PROVIDERS: Visit Provider Internal Medicine | DX: Z46.1 Encounter for fitting and adjustment of hearing aid (principal); H90.3 Sensorineural hearing loss, bilateral | CPT/HCPCS: 92593; 92595; 99499 ==

== ENCOUNTER 2022-09-16 09:37 | Outpatient (REF) | payer OTHER, SELFPAY ==
--- NOTE | 2022-09-16 10:37 | MHC.AU.HA3 ---
Hearing Instrument Follow-Up- Binaural Date of Visit: 09/16/22 Right Ear: Make, Model, Color, Serial Number: Linda Banks P 70-UP Black #[id number] Gas Burner Operator Repair Warranty: 08/23/2024 Gas Burner Operator Loss and Damage Warranty: 08/23/2024 [facility] Service Plan: 06/11/2022 Battery Size: 675 Earmold/Dome/CShell/SlimTip:Microsonic shell mold Dispensed By: [facility] Date of Fittin06/11/2021 Left Ear: Make, Model, Color, Serial Number: Linda Banks P 70-UP Black #[id number] Gas Burner Operator Repair Warranty: 08/23/2024 Gas Burner Operator Loss and Damage Warranty: 08/23/2024 [facility] Service Plan: 06/11/2022 Battery Size: 675 Earmold/Dome/CShell/SlimTip: Microsonic shell mold Dispensed By: [facility] Date of Fittin06/11/2021 Follow-Up Summary: Cali returned for routine hearing aid maintenance following an updated audiological evaluation (see separate report). Overall Cali is satisfied with her hearing aids and did not want any programming adjustments at this time. However, right hearing aid was weak. Upon inspection, moisture noted in damper of tone hook. Cleaned both hearing aids. Replaced tubing as it was already hardened and replaced right tone hook. Ran both hearing aids through dehumidifier. A listening check demonstrated that the hearing aids are in good working order. Recommendations: Hearing instrument maintenance in 6 months, or sooner if needed. Diagnosis Code(s): Primary Diagnosis: H90.3 Bilateral Sensorineural Hearing Loss Signature: Provider: Kelli Chester, [facility]
== END 2022-09-16 09:38 | disposition home or self-care (01) ==
LOC: HO.SH 09:37
PROVIDERS: Visit Provider Internal Medicine
DX: Z01.118 Encounter for examination of ears and hearing with other abnormal findings (principal); Z46.1 Encounter for fitting and adjustment of hearing aid; H90.3 Sensorineural hearing loss, bilateral
CPT/HCPCS: 92553; 92593; 99499

== ENCOUNTER 2022-10-29 10:08 | Outpatient (REF) | payer OTHER, SELFPAY | END 2022-10-29 10:09 | disposition home or self-care (01) | LOC: HO.HAP 10:08 | PROVIDERS: Visit Provider Internal Medicine | DX: Z46.1 Encounter for fitting and adjustment of hearing aid (principal); H90.3 Sensorineural hearing loss, bilateral | CPT/HCPCS: V5266 ==

== ENCOUNTER 2023-02-23 12:53 | Outpatient (REF) | payer OTHER, SELFPAY | END 2023-02-23 12:54 | disposition home or self-care (01) | LOC: HO.HAP 12:53 | PROVIDERS: Visit Provider Internal Medicine | DX: Z46.1 Encounter for fitting and adjustment of hearing aid (principal); H90.3 Sensorineural hearing loss, bilateral | CPT/HCPCS: 92593; 99499; V5266 ==

== ENCOUNTER 2023-06-14 12:42 | Outpatient (REF) | payer OTHER, SELFPAY | END 2023-06-14 12:43 | disposition home or self-care (01) | LOC: HO.HAP 12:42 | PROVIDERS: Visit Provider Internal Medicine | DX: Z46.1 Encounter for fitting and adjustment of hearing aid (principal); H90.3 Sensorineural hearing loss, bilateral | CPT/HCPCS: 92592; 99499; V5266 ==

== ENCOUNTER 2024-05-02 15:39 | Outpatient (REF) | payer OTHER, SELFPAY ==
--- NOTE | 2024-05-02 16:08 | MHC.AU.HA3 ---
Hearing Instrument Follow-Up- Binaural Date of Visit: 05/02/24 Right Ear: Make, Model, Color, Serial Number: Linda Jocelyn P 70-UP SN: [id number] Color: Black Manager Technology Repair Warranty: 08/23/2024 Manager Technology Loss and Damage Warranty: 08/23/2024 [facility] Service Plan: 06/11/2022 Battery Size: 675 Earmold/Dome/CShell/SlimTip:Microsonic shell mold Dispensed By: [facility] Date of Fittin06/11/2021 Left Ear: Make, Model, Color, Serial Number: Josephak Jocelyn P 70-UP SN: [id number] Color: Black Manager Technology Repair Warranty: 08/23/2024 Manager Technology Loss and Damage Warranty: 08/23/2024 [facility] Service Plan: 06/11/2022 Battery Size: 675 [place]armold/Dome/CShell/SlimTip: Microsonic shell mold Dispensed By: [facility] Date of Fittin06/11/2021 Follow-Up Summary: Cali is here with her mother. Right aid mold detached from tube. Left tube hard. Cleaned aids, cleaned earmolds, replaced tone hooks, replaced tubing. Listening check positive. Cali reports improvement. Recommendations: Recommendations: Hearing instrument follow-up or maintenance as needed. Diagnosis Code(s): Primary Diagnosis: H90.3 Bilateral Sensorineural Hearing Loss Signature: Provider: Kelli Flores, [facility]
--- OUTSIDE RECORDS SUMMARY | 2024-05-02 16:26 | XMS_ITS | Encounter Summary ---
Author Organization [facility] Address [address] [place] [address] Phone Care Team Providers Care Checkout Supervisor Name Role Phone Bianka Sanderson MD Primary Care Provider [phone] Encounter Details Date Type Department Care Team (Late st Contact Info) Description 10/13/2009 Documentation [facility] Family Medicine [address] [place] [address] Family Medicine, Physician [address] [place], [place] [phone] Social History Tobacco Use Types Packs/Day Years Used Date Smoking Tobacco: Never Assessed Comments Unknown Sex and Gender Information Value Date Recorded Sex Assigned at Not on file Legal Sex Female 5:09 PM EDT Gender Identity Not on file Sexual Orientation Not on file documented as of this encounter Plan of Treatment Not on file documented as of this encounter Visit Diagnoses Not on filedocumented in this encounter Care Teams Checkout Supervisor Relationship Specialty Start Date End Date Bianka Sanderson MD [address] [place] [address] [place] [address] PCP - General 10/29/16 08/26/22 documented as of this encounter
--- OUTSIDE RECORDS SUMMARY | 2024-05-02 16:26 | XMS_ITS | Encounter Summary ---
Author Organization [facility] Address [address] [place] [address] Phone Care Team Providers Care Car Pilot Name Role Phone Bianka Sanderson MD Primary Care Provider [phone] Encounter Details Date Type Department Care Team (Late st Contact Info) Description 10/29/2009 Documentation [facility] [address] [place] [address] Family Medicine, Physician [address] [place], [place] [phone] Social History Tobacco Use Types Packs/Day Years [...] on filedocumented in this encounter Care Teams Car Pilot Relationship Specialty Start Date End Date Bianka Sanderson MD [address] [place] [address] [place] [address] PCP - General 10/29/16 08/26/22 documented as of this encounter
--- OUTSIDE RECORDS SUMMARY | 2024-05-02 16:26 | XMS_ITS | Encounter Summary ---
Author Organization [facility] Address [address] [place] [phone] Phone Care Team Providers Care Solution Sales Senior Executive Name Role Phone Bianka Sanderson MD Primary Care Provider [phone] Encounter Details Date Type Department Care Team (Late st Contact Info) Description 09/11/2009 Documentation [facility] Family Medicine [address] [place] [address] Family Medicine, Physician [address] [place], [place] [phone] Social History Tobacco Use Types Packs/Day Years [...] on filedocumented in this encounter Care Teams Solution Sales Senior Executive Relationship Specialty Start Date End Date Bianka Sanderson MD [address] [place] [address] [place] [address] PCP - General 10/29/16 08/26/22 documented as of this encounter
--- OUTSIDE RECORDS SUMMARY | 2024-05-02 16:26 | XMS_ITS | Encounter Summary ---
Author Organization [facility] Address [address] [place] [address] Phone Care Team Providers Care Engineering Drawings Checker Name Role Phone Bianka Sanderson MD Primary Care Provider [phone] Encounter Details Date Type Department Care Team (Late st Contact Info) Description 10/20/2009 Documentation [facility] [place] [address] [place] [address] Family Medicine, Physician [address] [place], [place] [phone] Social History Tobacco Use Types Packs/Day Years [...] on filedocumented in this encounter Care Teams Engineering Drawings Checker Relationship Specialty Start Date End Date Bianka Sanderson MD [address] [place] [address] [place] [address] PCP - General 10/29/16 08/26/22 documented as of this encounter
--- OUTSIDE RECORDS SUMMARY | 2024-05-02 16:26 | XMS_ITS | Encounter Summary ---
Author Organization [facility] Address [address] [place] [address] Phone Care Team Providers Care Junction Maker Name Role Phone Bianka Sanderson MD Primary Care Provider [phone] Encounter Details Date Type Department Care Team (Late st Contact Info) Description 10/29/2009 Documentation [facility] [place] [address] [place] [address] Family Medicine, Physician [address] [place], [place] [phone] Social History Tobacco Use Types Packs/Day Years [...] on filedocumented in this encounter Care Teams Junction Maker Relationship Specialty Start Date End Date Bianka Sanderson MD [address] [place] [address] [place] [address] PCP - General 10/29/16 08/26/22 documented as of this encounter
--- OUTSIDE RECORDS SUMMARY | 2024-05-02 16:26 | XMS_ITS | Encounter Summary ---
Author Organization [facility] Address [address] [place] [address] Phone Care Team Providers Care Electric Motor Winder Name Role Phone Bianka Sanderson MD Primary Care Provider Encounter Details Date Type Department Care Team (Late st Contact Info) Description 12/08/2009 Documentation [facility] [place] [address] [place] [address] Family Medicine, Physician [address] [place], [place] [phone] Social History Tobacco Use Types Packs/Day Years [...] on filedocumented in this encounter Care Teams Electric Motor Winder Relationship Specialty Start Date End Date Bianka Sanderson MD [address] [place] [address] [place] [address] PCP - General 10/29/16 08/26/22 documented as of this encounter
--- OUTSIDE RECORDS SUMMARY | 2024-05-02 16:26 | XMS_ITS | Encounter Summary ---
Author Organization [facility] Address [address] [place] [address] Phone Care Team Providers Care Character Artist Name Role Phone Bianka Sanderson MD Primary Care Provider [phone] Encounter Details Date Type Department Care Team (Late st Contact Info) Description 01/12/2010 Documentation [facility] [place] [address] [place] [address] Family Medicine, Physician [address] [place], [place] [phone] Social History Tobacco Use Types Packs/Day Years [...] on filedocumented in this encounter Care Teams Character Artist Relationship Specialty Start Date End Date Bianka Sanderson MD [address] [place] [address] [place] [address] PCP - General 10/29/16 08/26/22 documented as of this encounter
--- OUTSIDE RECORDS SUMMARY | 2024-05-02 16:26 | XMS_ITS | Encounter Summary ---
Author Organization [facility] Address [address] [place] [address] Phone Care Team Providers Care Goodyear Welter Name Role Phone Bianka Sanderson MD Primary Care Provider [phone] Encounter Details Date Type Department Care Team (Late st Contact Info) Description 01/12/2010 Documentation [facility] [place] [address] [place] [address] Family Medicine, Physician [address] [place], [place] [phone] Social History Tobacco Use Types Packs/Day Years [...] on filedocumented in this encounter Care Teams Goodyear Welter Relationship Specialty Start Date End Date Bianka Sanderson MD [address] [place] [address] [place] [address] PCP - General 10/29/16 08/26/22 documented as of this encounter
--- OUTSIDE RECORDS SUMMARY | 2024-05-02 16:27 | XMS_ITS | Encounter Summary ---
Author Organization [facility] Address [address] [place] [address] Phone Care Team Providers Care Microstrategy Reports Developer Name Role Phone Bianka Sanderson MD Primary Care Provider [phone] Encounter Details Date Type Department Care Team (Late st Contact Info) Description 09/02/2009 Documentation [facility] [place] [address] [place] [address] Family Medicine, Physician [address] [place], [place] [phone] Social History Tobacco Use Types Packs/Day Years [...] on filedocumented in this encounter Care Teams Microstrategy Reports Developer Relationship Specialty Start Date End Date Bianka Sanderson MD [address] [place] [address] [place] [address] PCP - General 10/29/16 08/26/22 documented as of this encounter
--- OUTSIDE RECORDS SUMMARY | 2024-05-02 16:27 | XMS_ITS | Encounter Summary ---
Author Organization [facility] Address [address] [place] [address] Phone Care Team Providers Care Industrial Refrigeration Mechanic Name Role Phone Bianka Sanderson MD Primary Care Provider [phone] Encounter Details Date Type Department Care Team (Late st Contact Info) Description 09/05/2014 Documentation [facility] [place] [address] [place] [address] Family Medicine, Physician [address] [place], [place] [phone] Social History Tobacco Use Types Packs/Day Years [...] on filedocumented in this encounter Care Teams Industrial Refrigeration Mechanic Relationship Specialty Start Date End Date Bianka Sanderson MD [address] [place] [address] [place] [address] PCP - General 10/29/16 08/26/22 documented as of this encounter
--- OUTSIDE RECORDS SUMMARY | 2024-05-02 16:27 | XMS_ITS | Encounter Summary ---
Author Organization [facility] Address [address] [place] [address] Phone Care Team Providers Care Roll Skinner Name Role Phone Bianka Sanderson MD Primary Care Provider [phone] Encounter Details Date Type Department Care Team (Late st Contact Info) Description 06/30/2010 Documentation [facility] [place] [address] [place] [address] Family Medicine, Physician [address] [place], [place] [phone] Social History Tobacco Use Types Packs/Day Years [...] on filedocumented in this encounter Care Teams Roll Skinner Relationship Specialty Start Date End Date Bianka Sanderson MD [address] [place] [address] [place] [address] PCP - General 10/29/16 08/26/22 documented as of this encounter
--- OUTSIDE RECORDS SUMMARY | 2024-05-02 16:27 | XMS_ITS | Encounter Summary ---
Author Organization [facility] Address [address] [place] [address] Phone Care Team Providers Care Transportation Economics Teacher Name Role Phone Bianka Sanderson MD Primary Care Provider [phone] Encounter Details Date Type Department Care Team (Late st Contact Info) Description 07/15/2009 Documentation [facility] [place] [address] [place] [address] Family Medicine, Physician [address] [place], [place] [phone] Social History Tobacco Use Types Packs/Day Years [...] on filedocumented in this encounter Care Teams Transportation Economics Teacher Relationship Specialty Start Date End Date Bianka Sanderson MD [address] [place] [address] [place] [address] PCP - General 10/29/16 08/26/22 documented as of this encounter
--- OUTSIDE RECORDS SUMMARY | 2024-05-02 16:27 | XMS_ITS | Encounter Summary ---
Author Organization [facility] Address [address] [place] [address] Phone Care Team Providers Care Web Feeder Name Role Phone Bianka Sanderson MD Primary Care Provider [phone] Encounter Details Date Type Department Care Team (Late st Contact Info) Description 12/14/2010 Documentation [facility] [place] [address] [place] [address] Family Medicine, Physician [address] [place], [place] [phone] Social History Tobacco Use Types Packs/Day Years [...] on filedocumented in this encounter Care Teams Web Feeder Relationship Specialty Start Date End Date Bianka Sanderson MD [address] [place] [address] [place] [address] PCP - General 10/29/16 08/26/22 documented as of this encounter
--- OUTSIDE RECORDS SUMMARY | 2024-05-02 16:27 | XMS_ITS | Encounter Summary ---
Author Organization [facility] Address [address] [place] [address] Phone Care Team Providers Care Off Premise Service Representative Name Role Phone Bianka Sanderson MD Primary Care Provider [phone] Encounter Details Date Type Department Care Team (Late st Contact Info) Description 12/13/2011 [place] [facility] [place] [address] [place] [address] Family Medicine, Physician [address] [place], [place] [phone] Social History Tobacco Use Types Packs/Day Years [...] on filedocumented in this encounter Care Teams Off Premise Service Representative Relationship Specialty Start Date End Date Bianka Sanderson MD [address] [place] [address] [place] [address] PCP - General 10/29/16 08/26/22 documented as of this encounter
--- OUTSIDE RECORDS SUMMARY | 2024-05-02 16:27 | XMS_ITS | Encounter Summary ---
Author Organization [facility] Address [address] [place] [address] Phone Care Team Providers Care Network Account Manager Name Role Phone Bianka Sanderson MD Primary Care Provider [phone] Encounter Details Date Type Department Care Team (Late st Contact Info) Description 02/06/2013 Documentation [facility] [place] Family Medicine [address] [place] [address] Family Medicine, Physician [address] [place], [place] [phone] Social History Tobacco Use Types Packs/Day Years [...] on filedocumented in this encounter Care Teams Network Account Manager Relationship Specialty Start Date End Date Bianka Sanderson MD [address] [place] [address] [place] [address] PCP - General 10/29/16 08/26/22 documented as of this encounter
--- OUTSIDE RECORDS SUMMARY | 2024-05-02 16:27 | XMS_ITS | Encounter Summary ---
Author Organization [facility] Address [address] [place] [address] Phone Care Team Providers Care Forestry Tree Pruner Name Role Phone Bianka Sanderson MD Primary Care Provider [phone] Encounter Details Date Type Department Care Team (Late st Contact Info) Description 05/23/2012 Documentation [facility] [place] Family Medicine [address] [place] [address] Family Medicine, Physician [address] [place], [place] [phone] Social History Tobacco Use Types Packs/Day Years [...] on filedocumented in this encounter Care Teams Forestry Tree Pruner Relationship Specialty Start Date End Date Bianka Sanderson MD [address] [place] [address] [place] [address] PCP - General 10/29/16 08/26/22 documented as of this encounter
--- OUTSIDE RECORDS SUMMARY | 2024-05-02 16:27 | XMS_ITS | Encounter Summary ---
Author Organization [facility] Address [address] [place] [address] Phone Care Team Providers Care Program Scheduler Name Role Phone Bianka Sanderson MD Primary Care Provider [phone] Encounter Details Date Type Department Care Team (Late st Contact Info) Description 02/21/2014 Documentation [facility] [place] [address] [place] [address] Family Medicine, Physician [address] [place], [place] [phone] Social History Tobacco Use Types Packs/Day Years [...] on filedocumented in this encounter Care Teams Program Scheduler Relationship Specialty Start Date End Date Bianka Sanderson MD [address] [place] [address] [place] [address] PCP - General 10/29/16 08/26/22 documented as of this encounter
--- OUTSIDE RECORDS SUMMARY | 2024-05-02 16:27 | XMS_ITS | Encounter Summary ---
Author Organization [facility] Address [address] [place] [address] Phone Care Team Providers Care Puffer Tender Name Role Phone Bianka Sanderson MD Primary Care Provider [phone] Encounter Details Date Type Department Care Team (Late st Contact Info) Description 05/13/2010 Documentation [facility] [place] Family [place] [address] [place] [address] Family Medicine, Physician [address] [place], [place] [phone] Social History Tobacco Use Types Packs/Day Years [...] on filedocumented in this encounter Care Teams Puffer Tender Relationship Specialty Start Date End Date Bianka Sanderson MD [address] [place] [address] [place] [address] PCP - General 10/29/16 08/26/22 documented as of this encounter
--- OUTSIDE RECORDS SUMMARY | 2024-05-02 16:27 | XMS_ITS | Encounter Summary ---
Author Organization [facility] Address [address] [place] [address] Phone Care Team Providers Care Senior Business Intelligence Analyst Name Role Phone Bianka Sanderson MD Primary Care Provider [phone] Encounter Details Date Type Department Care Team (Late st Contact Info) Description 01/19/2010 Documentation [facility] [place] [address] [place] [address] Family Medicine, Physician [address] [place], [place] [phone] Social History Tobacco Use Types Packs/Day Years [...] on filedocumented in this encounter Care Teams Senior Business Intelligence Analyst Relationship Specialty Start Date End Date Bianka Sanderson MD [address] [place] [address] [place] [address] PCP - General 10/29/16 08/26/22 documented as of this encounter
--- OUTSIDE RECORDS SUMMARY | 2024-05-02 16:27 | XMS_ITS | Encounter Summary ---
Author Organization [facility] Address [address] [place] [address] Phone Care Team Providers Care Monitoring Manager Name Role Phone Bianka Sanderson MD Primary Care Provider [phone] Encounter Details Date Type Department Care Team (Late st Contact Info) Description 08/31/2011 Documentation [facility] [place] [address] [place] [address] Family Medicine, Physician [address] [place], [place] [phone] Social History Tobacco Use Types Packs/Day Years [...] on filedocumented in this encounter Care Teams Monitoring Manager Relationship Specialty Start Date End Date Bianka Sanderson MD [address] [place] [address] [place] [address] PCP - General 10/29/16 08/26/22 documented as of this encounter
--- OUTSIDE RECORDS SUMMARY | 2024-05-02 16:27 | XMS_ITS | Encounter Summary ---
Author Organization [facility] Address [address] [place] [address] Phone Care Team Providers Care Drive Shaft And Steering Post Repairer Name Role Phone Bianka Sanderson MD Primary Care Provider [phone] Encounter Details Date Type Department Care Team (Late st Contact Info) Description 07/21/2009 Documentation [facility] [place] [address] [place] [address] Family Medicine, Physician [address] [place], [place] [phone] Social History Tobacco Use Types Packs/Day Years [...] on filedocumented in this encounter Care Teams Drive Shaft And Steering Post Repairer Relationship Specialty Start Date End Date Bianka Sanderson MD [address] [place] [address] [place] [address] PCP - General 10/29/16 08/26/22 documented as of this encounter
--- OUTSIDE RECORDS SUMMARY | 2024-05-02 16:27 | XMS_ITS | Encounter Summary ---
Author Organization [facility] Address [address] [place] [address] Phone Care Team Providers Care Photography Professor Name Role Phone Bianka Sanderson MD Primary Care Provider Encounter Details Date Type Department Care Team (Late st Contact Info) Description 01/20/2017 Conversion Encounter [facility] [place] [address] [place] [address] Social History Tobacco Use Types Packs/Day Years Used Date Smoking Tobacco: Never Comments:Never smoker Comments Unknown Sex and Gender Information Value Date Recorded Sex Assigned at Not on file Legal Sex Female 5:09 PM EDT Gender Identity Not on file Sexual Orientation Not on file documented as of this encounter Plan of Treatment Not on file documented as of this encounter Visit Diagnoses Not on filedocumented in this encounter Care Teams Photography Professor Relationship Specialty Start Date End Date Bianka Sanderson MD [address] [place] [address] PCP - General 10/29/16 08/26/22 documented as of this encounter
--- OUTSIDE RECORDS SUMMARY | 2024-05-02 16:27 | XMS_ITS | Encounter Summary ---
Author Organization [facility] Address [address] [place] [address] Phone Care Team Providers Care Pharmacy Data Analyst Name Role Phone Bianka Sanderson MD Primary Care Provider Encounter Details Date Type Department Care Team (Late st Contact Info) Description 01/06/2012 Documentation [facility] [place] [address] [place] [address] Family Medicine, Physician [address] [place], [place] [phone] Social History Tobacco Use Types Packs/Day Years [...] on filedocumented in this encounter Care Teams Pharmacy Data Analyst Relationship Specialty Start Date End Date Bianka Sanderson MD [address] [place] [address] [place] [address] PCP - General 10/29/16 08/26/22 documented as of this encounter
--- OUTSIDE RECORDS SUMMARY | 2024-05-02 16:27 | XMS_ITS | Encounter Summary ---
Author Organization [facility] Address [address] [place] [address] Phone Care Team Providers Care Geothermal Installer Name Role Phone Bianka Sanderson MD Primary Care Provider [phone] Encounter Details Date Type Department Care Team (Late st Contact Info) Description 07/30/2009 Documentation [facility] [place] Family Medicine [address] [place] [address] Family Medicine, Physician [address], [place] [phone] Social History Tobacco Use Types Packs/Day Years [...] on filedocumented in this encounter Care Teams Geothermal Installer Relationship Specialty Start Date End Date Bianka Sanderson MD [address] [place] [address] [place] [address] PCP - General 10/29/16 08/26/22 documented as of this encounter
--- OUTSIDE RECORDS SUMMARY | 2024-05-02 16:27 | XMS_ITS | Encounter Summary ---
Author Organization [facility] Address [address] [place] [address] Phone Care Team Providers Care Power Wood Sawyer Name Role Phone Bianka Sanderson MD Primary Care Provider [phone] Encounter Details Date Type Department Care Team (Late st Contact Info) Description 02/08/2011 Documentation [facility] [place] [address] [place] [address] Family Medicine, Physician [address] [place], [place] [phone] Social History Tobacco Use Types Packs/Day Years [...] on filedocumented in this encounter Care Teams Power Wood Sawyer Relationship Specialty Start Date End Date Bianka Sanderson MD [address] [place] [address] [place] [address] PCP - General 10/29/16 08/26/22 documented as of this encounter
--- OUTSIDE RECORDS SUMMARY | 2024-05-02 16:27 | XMS_ITS | Encounter Summary ---
Author Organization [facility] Address [address] [place] [address] Phone Care Team Providers Care Cost Estimating Clerk Name Role Phone Bianka Sanderson MD Primary Care Provider [phone] Encounter Details Date Type Department Care Team (Late st Contact Info) Description 11/12/2014 Documentation [facility] [place] [address] [place] [address] Family Medicine, Physician [address] [place], [place] [phone] Social History Tobacco Use Types Packs/Day Years [...] on filedocumented in this encounter Care Teams Cost Estimating Clerk Relationship Specialty Start Date End Date Bianka Sanderson MD [address] [place] [address] [place] [address] PCP - General 10/29/16 08/26/22 documented as of this encounter
--- OUTSIDE RECORDS SUMMARY | 2024-05-02 16:27 | XMS_ITS | Encounter Summary ---
Author Organization [facility] Address [address] [place] [address] Phone Care Team Providers Care Sales And Service Technician Name Role Phone Bianka Sanderson MD Primary Care Provider [phone] Encounter Details Date Type Department Care Team (Late st Contact Info) Description 08/11/2011 Documentation [facility] [place] [address] [place] [address] Family Medicine, Physician [address] [place], [place] [phone] Social History Tobacco Use Types Packs/Day Years [...] on filedocumented in this encounter Care Teams Sales And Service Technician Relationship Specialty Start Date End Date Bianka Sanderson MD [address] [place] [address] [place] [address] PCP - General 10/29/16 08/26/22 documented as of this encounter
--- OUTSIDE RECORDS SUMMARY | 2024-05-02 16:27 | XMS_ITS | Encounter Summary ---
Author Organization [facility] Address [address] [place] [address] Phone Care Team Providers Care Plater Barrel Name Role Phone Bianka Sanderson MD Primary Care Provider [phone] Encounter Details Date Type Department Care Team (Late st Contact Info) Description 07/29/2010 Documentation [facility] [place] [address] [place] [address] Family Medicine, Physician [address] [place], [place] [phone] Social History Tobacco Use Types Packs/Day Years [...] on filedocumented in this encounter Care Teams Plater Barrel Relationship Specialty Start Date End Date Bianka Sanderson MD [address] [place] [address] [place] [address] PCP - General 10/29/16 08/26/22 documented as of this encounter
--- OUTSIDE RECORDS SUMMARY | 2024-05-02 16:27 | XMS_ITS | Encounter Summary ---
Author Organization [facility] Address [address] [place] [address] Phone Care Team Providers Care Law Secretary Name Role Phone Bianka Sanderson MD Primary Care Provider [phone] Encounter Details Date Type Department Care Team (Late st Contact Info) Description 06/03/2010 Documentation [facility] [place] [address] [place] [address] Family Medicine, Physician [address] [place], [place] [phone] Social History Tobacco Use Types Packs/Day Years [...] on filedocumented in this encounter Care Teams Law Secretary Relationship Specialty Start Date End Date Bianka Sanderson MD [address] [place] [address] [place] [address] PCP - General 10/29/16 08/26/22 documented as of this encounter
--- OUTSIDE RECORDS SUMMARY | 2024-05-02 16:27 | XMS_ITS | Encounter Summary ---
Author Organization [facility] Address [address] [place] [address] Phone Care Team Providers Care Manager E Learning Name Role Phone Bianka Sanderson MD Primary Care Provider [phone] Encounter Details Date Type Department Care Team (Late st Contact Info) Description 01/06/2015 Documentation [facility] [place] [address] [place] [address] Family Medicine, Physician [address] [place], [place] [phone] Social History Tobacco Use Types Packs/Day Years [...] on filedocumented in this encounter Care Teams Manager E Learning Relationship Specialty Start Date End Date Bianka Sanderson MD [address] [place] [address] [place] [address] PCP - General 10/29/16 08/26/22 documented as of this encounter
--- OUTSIDE RECORDS SUMMARY | 2024-05-02 16:27 | XMS_ITS | Clinical Summary ---
Author Organization [facility] Address [address] [place] [address] Phone Care Team Providers Care Planetarium Sky Show Technician Name Role Phone Unavailable Primary Care Provider Unavailabl e Immunizations Immunization Administration Dates Next Due DTaP 5 08/19/1998, 6,1994, 995,1994 H1N1 01/08/2009 Hep B, ped/adol 06/01/2007, 5,1994, 995 Hib (PRP-T) 02/18/1996, 5,1994, 995 IPV 08/19/1998, 5,1994, 995 Influenza Split 12/22/2011,11/16/2010,02/12/2002 Influenza, injectable, trivalent 12/19/2008,04/2007,02/12/2002 MMR 08/19/1998,01/31/1996 Meningococcal Conj (Menactra) MCV4P 06/01/2007 Pneumococcal Polysaccharide 03/22/2007 Tdap 06/01/2007 Varicella 07/31/1997 Social History Tobacco Use Types Packs/Day Years Used Date Smoking Tobacco: Never Comments:Never smoker Comments Unknown Sex and Gender Information Value Date Recorded Sex Assigned at Not on file Legal Sex Female 5:09 PM EDT Gender Identity Not on file Sexual Orientation Not on file Last Filed Vital Signs Vital Sign Reading Time Taken Comments Blood Pressure 116/75 07/07/2015 12:00 AM EDT Pulse 103 07/07/2015 12:00 AM EDT Temperature 37.4 ??C (99.3 ??F) 05/13/2011 12:[address] Respiratory Rate - - Oxygen Saturation - - Inhaled Oxygen Concentration - - Weight 48.2 kg (106 lb 3.2 oz) 07/07/2015 12:00 AM EDT Height 150.9 cm (4' 11.4 ) 12/02/2014 12:00 AM E DT Body Mass Index 21.16 12/02/2014 12:00 AM EDT Plan of Treatment Health Maintenance Due Date Last Done Comments Varicella Vaccines (2 of 2 - 2-dose childhood series) 09/16/1998 07/31/1997 DTaP,Tdap,and Td Vaccines (7 - Td or Tdap) 05/31/2017 06/01/2007, 08/19/1998, 02/18/1996, Additional history exists Influenza Vaccines (#1) 2023 12/22/19, 11/16/2010, 12/19/2008, Additional history exists COVID-19 Vaccine ( season) 2023 HIB Vaccines Completed 02/18/1996, 07/21, 1994, Additional history exists IPV Vaccines Completed 08/19/1998, 07/21, 1994, Additional history exists MMR Vaccines Completed 08/19/1998, 01/31/1996 Pneumococcal Vaccine Aged Out 03/22/2007 No long er eligible based on patient's age to complete this topic Hepatitis B Vaccines Completed 06/01/2007, 1994, 1994, Additional history exists Meningococcal Vaccine Aged Out 06/01/2007 No michael vinny eligible based on patient's age to complete this topic HPV Vaccines Aged Out No longer eligi ble based on patient's age to complete this topic Hepatitis A Vaccines Aged Out No long er eligible based on patient's age to complete this topic Men B Vaccine Aged Out No longer elig ible based on patient's age to complete this topic Procedures * Due to [place] [employer] law, this organization might not be sharing sensitive test results. Procedure Name Priority Date/Time Associated Diagnosis Comments CHLAMYDIA AND GONORRHEA, AMPLIFIED Routine 09/27/2014 4:49 PM EDT from Last 3 Months or Most Recently Relevant to Health Maintenance Results * Due to [place] [employer] law, this organization might not be sharing sensitive test results. * Chlamydia and Gonorrhoea, Amplified (09/27/2014 4:49 PM EDT) [facility] URINE GC AMP PROBE NEGATIVE [facility] Comment: No Neisseria Gonorrhoeae RNA detected in this patient's sample (REFERENCE RANGE/NORMAL VALUE: NOT DETECTED) NOTE: This test uses foundry manager-mediated amplification method to detect rRNA from C.Trachomatis and N.Gonorrhoeae. A negative result does not preclude infection. In the case of a negative urine result, testing of an endocervical(female) or urethral(male) specimen is recommended if there is high clinical suspicion of infection. The performance characteristics of this test have not been evaluated in children. The Aptima Combo2 assay is not intended for the evaluation of suspected sexual abuse or for other medico-legal indications. The ordering provider should assess if the patient had consensual sex without risk of sexual abuse. Consult the [facility] if needed. Contact phone number . Therapeutic failure or success cannot be determined with the Aptima Combo2 assay since nucleic acid may persist following appropriate antimicrobial therapy. The Centers for Disease Control and Prevention (CDC) recommends confirmatory retesting using culture or a different nucleic acid amplification test when positive results occur, if indicated. Testing performed or reported by [facility], a Service of [facility], [address] [place] [address] Florian Ivory MD, PhD, Director Of Labor Relations URINE CHLAMYDIA AMP PROBE NEGATIVE [facility] Comment: No Chlamydia Trachomatis RNA detected in this patient's sample (REFERENCE RANGE/NORMAL VALUE: NOT DETECTED) 09/27/2014 4:49 PM EDT Narrative [facility] - 09/27/2014 4:49 PM EDT URINE CHLAMYDIA GC AMP PROBE us Bianka Sanderson MD LAB MICROBIOLOGY - GENERAL ORDER PRINCE Final Result [facility] [address] [place] [address], [place] from Last 3 Months or Most Recently Relevant to Health Maintenance
--- OUTSIDE RECORDS SUMMARY | 2024-05-02 16:27 | XMS_ITS | Encounter Summary ---
Author Organization [facility] Address [address] [place] [address] Phone Care Team Providers Care Criminal Justice Teacher Name Role Phone Bianka Sanderson MD Primary Care Provider [phone] Encounter Details Date Type Department Care Team (Late st Contact Info) Description 01/09/2015 Documentation [facility] Family Medicine [address] [place] [address] Family Medicine, Physician [address] [place] [phone] Social History Tobacco Use Types Packs/Day Years [...] on filedocumented in this encounter Care Teams Criminal Justice Teacher Relationship Specialty Start Date End Date Bianka Sanderson MD [address] [place] [address] [place] [address] PCP - General 10/29/16 08/26/22 documented as of this encounter
--- OUTSIDE RECORDS SUMMARY | 2024-05-02 16:27 | XMS_ITS | Encounter Summary ---
Author Organization [facility] Address [address] [place] [address] Phone Care Team Providers Care Water Filtration Technician Name Role Phone Bianka Sanderson MD Primary Care Provider [phone] Encounter Details Date Type Department Care Team (Late st Contact Info) Description 01/20/2012 Documentation [facility] [place] [address] [place] [address] Family Medicine, Physician [address] [place], [place] [phone] Social History Tobacco Use Types Packs/Day Years [...] on filedocumented in this encounter Care Teams Water Filtration Technician Relationship Specialty Start Date End Date Bianka Sanderson MD [address] [place] [address] [place] [address] PCP - General 10/29/16 08/26/22 documented as of this encounter
--- OUTSIDE RECORDS SUMMARY | 2024-05-02 16:27 | XMS_ITS | Encounter Summary ---
Author Organization [facility] Address [address] [place] [address] Phone Care Team Providers Care Sharepoint Admin Name Role Phone Bianka Sanderson MD Primary Care Provider [phone] Encounter Details Date Type Department Care Team (Late st Contact Info) Description 01/24/2012 Documentation [facility] [place] Family Medicine [address] [place] [address] Family Medicine, Physician [address] [place], [place] [phone] Social History Tobacco Use Types Packs/Day Years [...] on filedocumented in this encounter Care Teams Sharepoint Admin Relationship Specialty Start Date End Date Bianka Sanderson MD [address] [place] [address] [place] [address] PCP - General 10/29/16 08/26/22 documented as of this encounter
--- OUTSIDE RECORDS SUMMARY | 2024-05-02 16:27 | XMS_ITS | Encounter Summary ---
Author Organization [facility] Address [address] [place] [address] Phone Care Team Providers Care Counter Sales Representative Name Role Phone Bianka Sanderson MD Primary Care Provider [phone] Encounter Details Date Type Department Care Team (Late st Contact Info) Description 02/16/2010 Documentation [facility] [place] [address] [place] [address] Family Medicine, Physician [address] [place], [place] [phone] Social History Tobacco Use Types Packs/Day Years [...] on filedocumented in this encounter Care Teams Counter Sales Representative Relationship Specialty Start Date End Date Bianka Sanderson MD [address] [place] [address] [place] [address] PCP - General 10/29/16 08/26/22 documented as of this encounter
== END 2024-05-02 15:40 | disposition home or self-care (01) ==
LOC: HO.HAP 15:39
PROVIDERS: Visit Provider Internal Medicine
DX: Z46.1 Encounter for fitting and adjustment of hearing aid (principal); H90.3 Sensorineural hearing loss, bilateral
CPT/HCPCS: 92593; 99499; V5266

== ENCOUNTER 2024-12-25 13:36 | Outpatient (REF) | payer OTHER, SELFPAY ==
--- OUTSIDE RECORDS SUMMARY | 2024-12-25 16:45 | XMS_ITS | Encounter Summary ---
Author Organization [facility] Address [address] [place] [address] Phone Care Team Providers Care Teletype Clerk Name Role Phone Bianka Sanderson MD Primary Care Provider [phone] Encounter Details Date Type Department Care Team (Late st Contact Info) Description 08/31/2011 Documentation [facility] [place] [address] [place] [address] Family Medicine, Physician [address] [place], [place] [phone] Social History Tobacco Use Types Packs/Day Years [...] on filedocumented in this encounter Care Teams Teletype Clerk Relationship Specialty Start Date End Date Bianka Sanderson MD [address] [place] [address] [place] [address] PCP - General 10/29/16 08/26/22 documented as of this encounter
--- OUTSIDE RECORDS SUMMARY | 2024-12-25 16:45 | XMS_ITS | Encounter Summary ---
Author Organization [facility] Address [address] [place] [address] Phone Care Team Providers Care Large Engine Assembler Name Role Phone Bianka Sanderson MD Primary Care Provider [phone] Encounter Details Date Type Department Care Team (Late st Contact Info) Description 10/29/2009 Documentation [facility] [place] Family Medicine [address] [place] [address] Family Medicine, Physician [address] [place], [place] [phone] Social History Tobacco Use Types Packs/Day Years [...] on filedocumented in this encounter Care Teams Large Engine Assembler Relationship Specialty Start Date End Date Bianka Sanderson MD [address] [place] [address] [place] [address] PCP - General 10/29/16 08/26/22 documented as of this encounter
--- OUTSIDE RECORDS SUMMARY | 2024-12-25 16:45 | XMS_ITS | Encounter Summary ---
Author Organization [facility] Address [address] [place] [address] Phone Care Team Providers Care Science Education Professor Name Role Phone Bianka Sanderson MD Primary Care Provider [phone] Encounter Details Date Type Department Care Team (Late st Contact Info) Description 08/11/2011 Documentation [facility] [place] [facility] [place] [address] [place] [address] Family Medicine, Physician [address] [place], [place] [phone] Social History Tobacco Use Types Packs/Day Years [...] on filedocumented in this encounter Care Teams Science Education Professor Relationship Specialty Start Date End Date Bianka Sanderson MD [address] [place] [address] [place] [address] PCP - General 10/29/16 08/26/22 documented as of this encounter
--- OUTSIDE RECORDS SUMMARY | 2024-12-25 16:45 | XMS_ITS | Encounter Summary ---
Author Organization [facility] Address [address] [place] [address] Phone Care Team Providers Care Intramural Director Name Role Phone Bianka Sanderson MD Primary Care Provider [phone] Encounter Details Date Type Department Care Team (Late st Contact Info) Description 09/11/2009 Documentation [facility] [place] Family Medicine [address] [place] [address] Family Medicine, Physician [address] [place], [place] [phone] Social History Tobacco Use Types Packs/Day Years [...] on filedocumented in this encounter Care Teams Intramural Director Relationship Specialty Start Date End Date Bianka Sanderson MD [address] [place] [address] [place] [address] PCP - General 10/29/16 08/26/22 documented as of this encounter
--- OUTSIDE RECORDS SUMMARY | 2024-12-25 16:45 | XMS_ITS | Clinical Summary ---
Author Organization [facility] Address [address] [place] [address] Phone Care Team Providers Care Asset Availability Leader Name Role Phone Unavailable Primary Care Provider [...] [phone] 07/07/2015 12:00 AM EDT Temperature 37.4 C (99.3 F) 05/13/2011 12:00 AM EST Respiratory Rate - - Oxygen Saturation - [...] 05/31/2017 06/01/2007, 08/19/1998, 02/18/1996, Additional history exists HPV Vaccines (1 - 3-dose SCDM series) 2021 Influenza Vaccines (#1) 2024 12/22/19 12, 11/16/2010, 12/19/2008, Additional history exists COVID-19 Vaccine ( season) 2024 HIB Vaccines Completed 02/18/1996, 07/21, 1994, Additional [...] complete this topic Procedures * Due to [place] [employer] law, this organization might not be sharing sensitive test results. Procedure Name Priority Date/Time Associated Diagnosis Comments CHLAMYDIA AND GONORRHEA, AMPLIFIED Routine 09/27/2014 4:49 PM EDT from Last 3 Months or Most Recently Relevant to Health Maintenance Results * Due to [facility] law, this organization might not be sharing sensitive test results. * Chlamydia and Gonorrhoea, Amplified (09/27/2014 4:49 PM EDT) URINE GC AMP PROBE NEGATIVE [facility] Comment: No Neisseria Gonorrhoeae RNA detected in this patient's sample (REFERENCE RANGE/NORMAL VALUE: NOT DETECTED) NOTE: This test uses regrinder-mediated amplification method to detect rRNA from C.Trachomatis [...] without risk of sexual abuse. Consult the [facility] if needed. Contact phone number . Therapeutic failure or success cannot be determined with the Aptima Combo2 assay since nucleic acid may persist following appropriate antimicrobial therapy. The Centers for Disease Control and Prevention (CDC) recommends confirmatory retesting using culture or a different nucleic acid amplification test when positive results occur, if indicated. Testing performed or reported by [facility], a Service of [facility], [address] [place] [address] Florian Ivory MD, PhD, Immigration Lawyer URINE CHLAMYDIA AMP PROBE NEGATIVE [facility] Comment: No Chlamydia Trachomatis RNA detected in this patient's sample (REFERENCE RANGE/NORMAL VALUE: NOT DETECTED) 09/27/2014 4:49 PM EDT Narrative [facility] - 09/27/2014 4:49 PM EDT URINE CHLAMYDIA GC AMP PROBE us Bianka Sanderson MD LAB MICROBIOLOGY - GENERAL ORDER PRINCE Final Result [facility] [address] [id number], [place] from Last 3 Months or Most Recently Relevant to Health Maintenance
--- OUTSIDE RECORDS SUMMARY | 2024-12-25 16:45 | XMS_ITS | Encounter Summary ---
Author Organization [facility] Address [address] [place] [address] Phone Care Team Providers Care Water Plant Pump Operator Name Role Phone Bianka Sanderson MD Primary Care Provider [phone] Encounter Details Date Type Department Care Team (Late st Contact Info) Description 12/14/2010 Documentation [facility] [place] Family Medicine [address] [place] [address] Family Medicine, Physician [address] [place], [place] [phone] Social History Tobacco Use Types Packs/Day Years [...] filedocumented in this encounter Care Teams Water Plant Pump Operator Relationship Specialty Start Date End Date Bianka Sanderson MD [address] [place] [address] [place] [address] PCP - General 10/29/16 08/26/22 documented as of this encounter
--- OUTSIDE RECORDS SUMMARY | 2024-12-25 16:45 | XMS_ITS | Encounter Summary ---
Author Organization [facility] Address [address] [place] [address] Phone Care Team Providers Care Electric Utility Lineworker Name Role Phone Bianka Sanderson MD Primary Care Provider [phone] Encounter Details Date Type Department Care Team (Late st Contact Info) Description 02/08/2011 Documentation [facility] [place] [address] [place] [address] Family Medicine, Physician [address] [place], [place] [phone] Social History Tobacco Use Types Packs/Day Years [...] filedocumented in this encounter Care Teams Electric Utility Lineworker Relationship Specialty Start Date End Date Bianka Sanderson MD [address] [place] [address] [place] [address] PCP - General 10/29/16 08/26/22 documented as of this encounter
--- OUTSIDE RECORDS SUMMARY | 2024-12-25 16:45 | XMS_ITS | Encounter Summary ---
Author Organization [facility] Address [address] [place] [address] Phone Care Team Providers Care Candy Feeder Name Role Phone Bianka Sanderson MD Primary Care Provider [phone] Encounter Details Date Type Department Care Team (Late st Contact Info) Description 05/23/2012 Documentation [facility] [place] [address] [place] [address] Family Medicine, Physician [address] [place], [place] [phone] Social History Tobacco Use Types Packs/Day Years [...] on filedocumented in this encounter Care Teams Candy Feeder Relationship Specialty Start Date End Date Bianka Sanderson MD [address] [place] [address] [place] [address] PCP - General 10/29/16 08/26/22 documented as of this encounter
--- OUTSIDE RECORDS SUMMARY | 2024-12-25 16:45 | XMS_ITS | Encounter Summary ---
Author Organization [facility] Address [address] [place] [address] Phone Care Team Providers Care Chair Post Machine Operator Name Role Phone Bianka Sanderson MD Primary Care Provider [phone] Encounter Details Date Type Department Care Team (Late st Contact Info) Description 01/06/2015 Documentation [facility] [place] Family Medicine [address] [place] [address] Family Medicine, Physician [address], [place] [phone] Social History Tobacco Use Types Packs/Day Years [...] on filedocumented in this encounter Care Teams Chair Post Machine Operator Relationship Specialty Start Date End Date Bianka Sanderson MD [address] [place] [address] [place] [address] PCP - General 10/29/16 08/26/22 documented as of this encounter
--- OUTSIDE RECORDS SUMMARY | 2024-12-25 16:45 | XMS_ITS | Encounter Summary ---
Author Organization [facility] Address [address] [place] [address] Phone Care Team Providers Care Staff Nurse Name Role Phone Bianka Sanderson MD Primary Care Provider [phone] Encounter Details Date Type Department Care Team (Late st Contact Info) Description 02/21/2014 Documentation [facility] [place] Family Medicine [address] [place] [address] Family Medicine, Physician [address] [place], [place] [phone] Social History Tobacco Use Types Packs/Day Years [...] on filedocumented in this encounter Care Teams Staff Nurse Relationship Specialty Start Date End Date Bianka Sanderson MD [address] [place] [address] [place] [address] PCP - General 10/29/16 08/26/22 documented as of this encounter
--- OUTSIDE RECORDS SUMMARY | 2024-12-25 16:45 | XMS_ITS | Encounter Summary ---
Author Organization [facility] Address [address] [place] [address] Phone Care Team Providers Care Construction Recruiter Name Role Phone Bianka Sanderson MD Primary Care Provider [phone] Encounter Details Date Type Department Care Team (Late st Contact Info) Description 10/13/2009 Documentation [facility] [place] [address] [place] [address] Family Medicine, Physician [address] [place], [place] [phone] Social History Tobacco Use Types Packs/Day Years [...] on filedocumented in this encounter Care Teams Construction Recruiter Relationship Specialty Start Date End Date Bianka Sanderson MD [address] [place] [address] [place] [address] PCP - General 10/29/16 08/26/22 documented as of this encounter
--- OUTSIDE RECORDS SUMMARY | 2024-12-25 16:45 | XMS_ITS | Encounter Summary ---
Author Organization [facility] Address [address] [place] [address] Phone Care Team Providers Care Marketing Information Analyst Name Role Phone Bianka Sanderson MD Primary Care Provider [phone] Encounter Details Date Type Department Care Team (Late st Contact Info) Description 01/24/2012 Documentation [facility] [place] Family Medicine [address] [place] [address] Family Medicine, Physician [address] [place], [place] [phone] Social History Tobacco Use Types Packs/Day Years [...] on filedocumented in this encounter Care Teams Marketing Information Analyst Relationship Specialty Start Date End Date Bianka Sanderson MD [address] [place] [address] [place] [address] PCP - General 10/29/16 08/26/22 documented as of this encounter
--- OUTSIDE RECORDS SUMMARY | 2024-12-25 16:45 | XMS_ITS | Encounter Summary ---
Author Organization [facility] Address [address] [place] [address] Phone Care Team Providers Care Letterpress Setter Name Role Phone Bianka Sanderson MD Primary Care Provider [phone] Encounter Details Date Type Department Care Team (Late st Contact Info) Description 12/13/2011 Documentation [facility] [place] [address] [place] [address] Family Medicine, Physician [address] [place], [place] [phone] Social History Tobacco Use Types Packs/Day Years [...] on filedocumented in this encounter Care Teams Letterpress Setter Relationship Specialty Start Date End Date Bianka Sanderson MD [address] [place] [address] [place] [address] PCP - General 10/29/16 08/26/22 documented as of this encounter
--- OUTSIDE RECORDS SUMMARY | 2024-12-25 16:45 | XMS_ITS | Encounter Summary ---
Author Organization [facility] Address [address] [place] [address] Phone Care Team Providers Care Oil Field Pumper Name Role Phone Bianka Sanderson MD Primary Care Provider [phone] Encounter Details Date Type Department Care Team (Late st Contact Info) Description 10/20/2009 Documentation [facility] [place] Family Medicine [address] [place] [address] Family Medicine, Physician [address] [place], [place] [phone] Social History Tobacco Use Types Packs/Day Years [...] on filedocumented in this encounter Care Teams Oil Field Pumper Relationship Specialty Start Date End Date Bianka Sanderson MD [address] [place] [address] [place] [address] PCP - General 10/29/16 08/26/22 documented as of this encounter
--- OUTSIDE RECORDS SUMMARY | 2024-12-25 16:45 | XMS_ITS | Encounter Summary ---
Author Organization [facility] Address [address] [place] [address] Phone Care Team Providers Care Electrician Bus Name Role Phone Bianka Sanderson MD Primary Care Provider [phone] Encounter Details Date Type Department Care Team (Late st Contact Info) Description 01/06/2012 Documentation [facility] [place] [address] [place] [address] Family Medicine, Physician [address] [place], [place] [phone] Social History Tobacco Use Types Packs/Day Years [...] on filedocumented in this encounter Care Teams Electrician Bus Relationship Specialty Start Date End Date Bianka Sanderson MD [address] [place] [address] [place] [address] PCP - General 10/29/16 08/26/22 documented as of this encounter
--- OUTSIDE RECORDS SUMMARY | 2024-12-25 16:45 | XMS_ITS | Encounter Summary ---
Author Organization [facility] Address [address] [place] [address] Phone Care Team Providers Care Manager Life Insurance Name Role Phone Bianka Sanderson MD Primary Care Provider [phone] Encounter Details Date Type Department Care Team (Late st Contact Info) Description 01/20/2012 Documentation [facility] [place] [address] [place] [address] Family Medicine, Physician [address] [place], [place] [phone] Social History Tobacco Use Types Packs/Day Years [...] filedocumented in this encounter Care Teams Manager Life Insurance Relationship Specialty Start Date End Date Bianka Sanderson MD [address] [place] [address] [place] [address] PCP - General 10/29/16 08/26/22 documented as of this encounter
--- OUTSIDE RECORDS SUMMARY | 2024-12-25 16:45 | XMS_ITS | Encounter Summary ---
Author Organization [facility] Address [address] [place] [address] Phone Care Team Providers Care Middle School English Teacher Name Role Phone Bianka Sanderson MD Primary Care Provider [phone] Encounter Details Date Type Department Care Team (Late st Contact Info) Description 10/29/2009 Documentation [facility] [place] [address] [place] [address] Family Medicine, Physician [address] [place], [place] [phone] Social History Tobacco Use Types Packs/Day Years [...] on filedocumented in this encounter Care Teams Middle School English Teacher Relationship Specialty Start Date End Date Bianka Sanderson MD [address] [place] [address] [place] [address] PCP - General 10/29/16 08/26/22 documented as of this encounter
--- OUTSIDE RECORDS SUMMARY | 2024-12-25 16:45 | XMS_ITS | Encounter Summary ---
Author Organization [facility] Address [address] [place] [address] Phone Care Team Providers Care Car Repairer Apprentice Name Role Phone Bianka Sanderson MD Primary Care Provider [phone] Encounter Details Date Type Department Care Team (Late st Contact Info) Description 12/08/2009 Documentation [facility] [place] [address] [place] [address] Family Medicine, Physician [address] [place], [place] [phone] Social History Tobacco Use Types Packs/Day Years [...] filedocumented in this encounter Care Teams Car Repairer Apprentice Relationship Specialty Start Date End Date Bianka Sanderson MD [address] [place] [address] [place] [address] PCP - General 10/29/16 08/26/22 documented as of this encounter
--- OUTSIDE RECORDS SUMMARY | 2024-12-25 16:45 | XMS_ITS | Encounter Summary ---
Author Organization [facility] Address [address] [place] [address] Phone Care Team Providers Care Wrapper Leaf Inspector Name Role Phone Bianka Sanderson MD Primary Care Provider [phone] Encounter Details Date Type Department Care Team (Late st Contact Info) Description 01/12/2010 Documentation [facility] [place] [address] [place] [address] Family Medicine, Physician [address] [place], [place] [phone] Social History Tobacco Use Types Packs/Day Years [...] on filedocumented in this encounter Care Teams Wrapper Leaf Inspector Relationship Specialty Start Date End Date Bianka Sanderson MD [address] [place] [address] [place] [address] PCP - General 10/29/16 08/26/22 documented as of this encounter
--- OUTSIDE RECORDS SUMMARY | 2024-12-25 16:45 | XMS_ITS | Encounter Summary ---
Author Organization [facility] Address [address] [place] [address] Phone Care Team Providers Care Emergency Room Specialist Name Role Phone Bianka Sanderson MD Primary Care Provider [phone] Encounter Details Date Type Department Care Team (Late st Contact Info) Description 01/12/2010 Documentation [facility] [place] Medicine [address] [place] [address] Family Medicine, Physician [address] [place], [place] [phone] Social History Tobacco Use Types Packs/Day Years [...] on filedocumented in this encounter Care Teams Emergency Room Specialist Relationship Specialty Start Date End Date Bianka Sanderson MD [address] [place] [address] [place] [address] PCP - General 10/29/16 08/26/22 documented as of this encounter
--- OUTSIDE RECORDS SUMMARY | 2024-12-25 16:45 | XMS_ITS | Encounter Summary ---
Author Organization [facility] Address [address] [place] [address] Phone Care Team Providers Care Capper Machine Operator Name Role Phone Bianka Sanderson MD Primary Care Provider [phone] Encounter Details Date Type Department Care Team (Late st Contact Info) Description 09/02/2009 Documentation [facility] [place] [address] [place] [address] Family Medicine, Physician [address] [place], [place] [phone] Social History Tobacco Use Types Packs/Day Years [...] on filedocumented in this encounter Care Teams Capper Machine Operator Relationship Specialty Start Date End Date Bianka Sanderson MD [address] [place] [address] [place] [address] PCP - General 10/29/16 08/26/22 documented as of this encounter
--- OUTSIDE RECORDS SUMMARY | 2024-12-25 16:45 | XMS_ITS | Encounter Summary ---
Author Organization [facility] Address [address] [place] [address] Phone Care Team Providers Care Gill Net Stringer Name Role Phone Bianka Sanderson MD Primary Care Provider [phone] Encounter Details Date Type Department Care Team (Late st Contact Info) Description 01/20/2017 Conversion Encounter [facility] [place] [address] [place] [address] Social History Tobacco Use Types Packs/Day Years [...] on filedocumented in this encounter Care Teams Gill Net Stringer Relationship Specialty Start Date End Date Bianka Sanderson MD [address] [place] [address] PCP - General 10/29/16 08/26/22 documented as of this encounter
--- OUTSIDE RECORDS SUMMARY | 2024-12-25 16:45 | XMS_ITS | Encounter Summary ---
Author Organization [facility] Address [address] [place] [address] Phone Care Team Providers Care Accounting Systems Manager Name Role Phone Bianka Sanderson MD Primary Care Provider [phone] Encounter Details Date Type Department Care Team (Late st Contact Info) Description 11/12/2014 [place]ation [facility] [place] [address] [place] [address] Family Medicine, Physician [address] [place], [place] [phone] Social History Tobacco Use Types Packs/Day Years [...] on filedocumented in this encounter Care Teams Accounting Systems Manager Relationship Specialty Start Date End Date Bianka Sanderson MD [address] [place] [address] [place] [address] PCP - General 10/29/16 08/26/22 documented as of this encounter
--- OUTSIDE RECORDS SUMMARY | 2024-12-25 16:45 | XMS_ITS | Encounter Summary ---
Author Organization [facility] Address [address] [place] [address] Phone Care Team Providers Care Nonprofit Financial Controller Name Role Phone Bianka Sanderson MD Primary Care Provider [phone] Encounter Details Date Type Department Care Team (Late st Contact Info) Description 09/05/2014 Documentation [facility] [place] [address] [place] [address] Family Medicine, Physician [address] [place], [place] [phone] Social History Tobacco Use Types Packs/Day Years [...] on filedocumented in this encounter Care Teams Nonprofit Financial Controller Relationship Specialty Start Date End Date Bianka Sanderson MD [address] [place] [address] [place] [address] PCP - General 10/29/16 08/26/22 documented as of this encounter
--- OUTSIDE RECORDS SUMMARY | 2024-12-25 16:45 | XMS_ITS | Encounter Summary ---
Author Organization [facility] Address [address] [place] [address] Phone Care Team Providers Care Recordings Librarian Name Role Phone Bianka Sanderson MD Primary Care Provider Encounter Details Date Type Department Care Team (Late st Contact Info) Description 07/30/2009 Documentation [facility] [place] [address] [place] [address] Family Medicine, Physician [address] [place], [place] [phone] Social History Tobacco Use Types Packs/Day Years [...] on filedocumented in this encounter Care Teams Recordings Librarian Relationship Specialty Start Date End Date Bianka Sanderson MD [address] [place] [address] [place] [address] PCP - General 10/29/16 08/26/22 documented as of this encounter
--- OUTSIDE RECORDS SUMMARY | 2024-12-25 16:46 | XMS_ITS | Encounter Summary ---
Author Organization [facility] Address [address] [place] [address] Phone Care Team Providers Care Surveillance Monitor Name Role Phone Bianka Sanderson MD Primary Care Provider [phone] Encounter Details Date Type Department Care Team (Late st Contact Info) Description 01/19/2010 Documentation [facility] [place] [address] [place] [address] Family Medicine, Physician [address] [place], [place] [phone] Social History Tobacco Use Types Packs/Day Years [...] on filedocumented in this encounter Care Teams Surveillance Monitor Relationship Specialty Start Date End Date Bianka Sanderson MD [address] [place] [address] [place] [address] PCP - General 10/29/16 08/26/22 documented as of this encounter
--- OUTSIDE RECORDS SUMMARY | 2024-12-25 16:46 | XMS_ITS | Encounter Summary ---
Author Organization [facility] Address [address] [place] [address] Phone Care Team Providers Care Duplicating Machine Servicer Name Role Phone Bianka Sanderson MD Primary Care Provider [phone] Encounter Details Date Type Department Care Team (Late st Contact Info) Description 07/15/2009 Documentation [facility] [place] [address] [place] [address] Family Medicine, Physician [address] [place], [place] [phone] Social History Tobacco Use Types Packs/Day Years [...] on filedocumented in this encounter Care Teams Duplicating Machine Servicer Relationship Specialty Start Date End Date Bianka Sanderson MD [address] [place] [address] [place] [address] PCP - General 10/29/16 08/26/22 documented as of this encounter
--- OUTSIDE RECORDS SUMMARY | 2024-12-25 16:46 | XMS_ITS | Clinical Summary ---
Author Organization [facility] Address [address] [place] [address] Phone Care Team Providers Care Hedge Fund Trader Name Role Phone Beverly Pink Primary Care Provider [phone] Apryl, Beverly Unavailable [phone] Apryl Beverly Unavailable [phone] Medications amoxicillin (Amoxil) 250 mg capsule Dose: 250 mg, Dose Amount: 1 cap, PO, BID, Dispense Supply: 1 month, Refills: 11 07/05/2009 Active azelaic acid (Azelex) 20 % cream See Instructions, Special Instructions: TOP BID, Dispense Quantity: 100 g, Refills: 11, Entered: 04/14/20 11:40:00 EST, [facility]/pharmacy #207004/14/2020 Active fluticasone (Flovent HFA) 110 mcg/actuation inhaler See Instructions, Special Instructions: 2 puff INH daily when well. If you are sick, then use 2 puffs twice a day, Dispense Quantity: 1 EA, Refills: 11, Entered: 01/15/19 11:17:50 EDT, [facility] #[id number]/15/2019 Active levothyroxine (Synthroid, Levoxyl) 75 mcg tablet mcg, tab, PO, daily, Entered: 01/15/19 12:59:15 EDT 01/15/2019 Active medroxyprogeste tristin acetate (DEPO-PROVERA IM) mg, IM, Entered: 07/23/15 7:55:37 EDT 07/23/2015 Active pantoprazole (ProtoNix) 40 mg packet mg, EA, PO, daily, Entered: 01/15/19 12:59:32 EDT 01/15/2019 Active Immunizations Immunization Administration Dates Next Due Influenza, Unspecified 01/15/2021 Social History Tobacco Use Types Packs/Day Years Used Date Smoking Tobacco: Never Assessed Comments Unknown Sex and Gender Information Value Date Recorded Sex Assigned at Not on file Legal Sex Female 7:14 PM EDT Gender Identity Not on file Sexual Orientation Not on file Last Filed Vital Signs Vital Sign Reading Time Taken Comments Blood Pressure - - Pulse - - Temperature - - Respiratory Rate - - Oxygen Saturation - - Inhaled Oxygen Concentration - - Weight 73.6 kg (162 lb 4.1 oz) 09/14/2021 10:29 AM EDT Height 153 cm (5' 0.24 ) 09/14/2021 10:29 AM EDT Body Mass Index 31.44 09/14/2021 10:29 AM EDT Plan of Treatment Not on file Care Teams Hedge Fund Trader Relationship Specialty Start Date End Date Beverly Pink [facility] [address] [address] PCP - General 09/06/16 Beverly Pink [facility] [address] [address] PCP - Insurance PCP 08/10/17 Beverly Pink [address] [address] PCP - Clinical PCP 07/23/15
--- OUTSIDE RECORDS SUMMARY | 2024-12-25 16:46 | XMS_ITS | Encounter Summary ---
Author Organization [facility] Address [address] [place] [address] Phone Care Team Providers Care Technical Applications Specialist Name Role Phone Bianka Sanderson MD Primary Care Provider [phone] Encounter Details Date Type Department Care Team (Late st Contact Info) Description 06/30/2010 Documentation [facility] [place] [address] [place] [address] Family Medicine, Physician [address] [place], [place] [phone] Social History Tobacco Use Types Packs/Day Years [...] on filedocumented in this encounter Care Teams Technical Applications Specialist Relationship Specialty Start Date End Date Bianka Sanderson MD [address] [place] [address] [place] [address] PCP - General 10/29/16 08/26/22 documented as of this encounter
--- OUTSIDE RECORDS SUMMARY | 2024-12-25 16:46 | XMS_ITS | Encounter Summary ---
Author Organization [facility] Address [address] [place] [address] Phone Care Team Providers Care Bleach Liquor Maker Name Role Phone Bianka Sanderson MD Primary Care Provider Encounter Details Date Type Department Care Team (Late st Contact Info) Description 01/09/2015 Documentation [facility] [place] [address] [place] [address] Family Medicine, Physician [address] [place], [place] [phone] Social History Tobacco Use Types Packs/Day Years [...] on filedocumented in this encounter Care Teams Bleach Liquor Maker Relationship Specialty Start Date End Date Bianka Sanderson MD [address] [place] [address] [place] [address] PCP - General 10/29/16 08/26/22 documented as of this encounter
--- OUTSIDE RECORDS SUMMARY | 2024-12-25 16:46 | XMS_ITS | Encounter Summary ---
Author Organization [facility] Address [address] [place] [address] Phone Care Team Providers Care Pump Machine Operator Name Role Phone Bianka Sanderson MD Primary Care Provider [phone] Encounter Details Date Type Department Care Team (Late st Contact Info) Description 06/03/2010 Documentation [facility] [place] [address] [place] [address] Family Medicine, Physician [address] [place], [place] [phone] Social History Tobacco Use Types Packs/Day Years [...] on filedocumented in this encounter Care Teams Pump Machine Operator Relationship Specialty Start Date End Date Bianka Sanderson MD [address] [place] [address] [place] [address] PCP - General 10/29/16 08/26/22 documented as of this encounter
--- OUTSIDE RECORDS SUMMARY | 2024-12-25 16:46 | XMS_ITS | Encounter Summary ---
Author Organization [facility] Address [address] [place] [address] Phone Care Team Providers Care Rn Field Name Role Phone Bianka Sanderson MD Primary Care Provider [phone] Encounter Details Date Type Department Care Team (Late st Contact Info) Description 05/13/2010 Documentation [facility] [place] [address] [place] [address] Family Medicine, Physician [address] [place], [place] [phone] Social History Tobacco Use Types Packs/Day Years [...] on filedocumented in this encounter Care Teams Rn Field Relationship Specialty Start Date End Date Bianka Sanderson MD [address] [place] [address] [place] [address] PCP - General 10/29/16 08/26/22 documented as of this encounter
--- OUTSIDE RECORDS SUMMARY | 2024-12-25 16:46 | XMS_ITS | Encounter Summary ---
Author Organization [facility] Address [address] [place] [address] Phone Care Team Providers Care Pipe Bending Machine Operator Name Role Phone Bianka Sanderson MD Primary Care Provider [phone] Encounter Details Date Type Department Care Team (Late st Contact Info) Description 07/29/2010 Documentation [facility] [place] [address] [place] [address] Family Medicine, Physician [address] [place], [place] [phone] Social History Tobacco Use Types Packs/Day Years [...] on filedocumented in this encounter Care Teams Pipe Bending Machine Operator Relationship Specialty Start Date End Date Bianka Sanderson MD [address] [place] [address] [place] [address] PCP - General 10/29/16 08/26/22 documented as of this encounter
--- OUTSIDE RECORDS SUMMARY | 2024-12-25 16:46 | XMS_ITS | Encounter Summary ---
Author Organization [facility] Address [address] [place] [address] Phone Care Team Providers Care Retail Loan Originator Assistant Name Role Phone Bianka Sanderson MD Primary Care Provider [phone] Encounter Details Date Type Department Care Team (Late st Contact Info) Description 02/06/2013 Documentation [facility] [place] [address] [place] [address] Family Medicine, Physician [address] [place], [place] [phone] Social History Tobacco Use Types Packs/Day Years [...] on filedocumented in this encounter Care Teams Retail Loan Originator Assistant Relationship Specialty Start Date End Date Bianka Sanderson MD [address] [place] [address] [place] [address] PCP - General 10/29/16 08/26/22 documented as of this encounter
--- OUTSIDE RECORDS SUMMARY | 2024-12-25 16:46 | XMS_ITS | Encounter Summary ---
Author Organization [facility] Address [address] [place] [address] Phone Care Team Providers Care Agricultural Equipment Mechanic Name Role Phone Bianka Sanderson MD Primary Care Provider [phone] Encounter Details Date Type Department Care Team (Late st Contact Info) Description 02/16/2010 Documentation [facility] [place] [address] [place] [address] Family Medicine, Physician [address] [place], [place] [phone] Social History Tobacco Use Types Packs/Day Years [...] on filedocumented in this encounter Care Teams Agricultural Equipment Mechanic Relationship Specialty Start Date End Date Bianka Sandreson MD [address] [place] [address] [place] [address] PCP - General 10/29/16 08/26/22 documented as of this encounter
--- OUTSIDE RECORDS SUMMARY | 2024-12-25 16:46 | XMS_ITS | Encounter Summary ---
Author Organization [facility] Address [address] [place] [address] Phone Care Team Providers Care Rehab Department Manager Name Role Phone Bianka Sanderson MD Primary Care Provider [phone] Encounter Details Date Type Department Care Team (Late st Contact Info) Description 07/21/2009 Documentation [facility] [place] [address] [place] [address] Family Medicine, Physician [address] [place], [place] [phone] Social History Tobacco Use Types Packs/Day Years [...] on filedocumented in this encounter Care Teams Rehab Department Manager Relationship Specialty Start Date End Date Bianka Sanderson MD [address] [place] [address] [place] [address] PCP - General 10/29/16 08/26/22 documented as of this encounter
--- OUTSIDE RECORDS SUMMARY | 2024-12-25 16:46 | XMS_ITS | Clinical Summary ---
Author Organization Formerly [facility] Address [address] [place] [id number] Phone Care Team Providers Care Kennel Hand Name Role Phone Viet Martell MD Unavailable [phone] Beverly Pink MD Primary Care Provider + Allergies Active Allergy Reactions Criticality Noted Date Comments Azithromycin 07/01/2015 Bactrim (Sulfamethoxazole-Trimethoprim) 07/01/2015 Ceftriaxone 07/01/2015 Ciprofloxacin 07/01/2015 Gadolinium-Containing Contrast Media Rash Low 07/01/2015 Levofloxacin 07/01/2015 Vancomycin 07/01/2015 Medications AMOXICILLIN ORAL Take by mouth. Activ e hydroxychloroqu ine (PLAQUENIL) 200 mg tablet Take 200 mg by mouth daily. Active FLUOXETINE HCL (FLUOXETINE ORAL) Take 20 mg by mouth daily. Active atovaquone (MEPRON) 750 mg/5 mL suspension Take 1,500 mg by mouth daily. Active venlafaxine (EFFEXOR-XR) 150 MG 24 hr capsule Take 150 mg by mouth daily. Active predniSONE (DELTASONE) 10 MG tablet Take as directed 100 tablet 2 6 Active Additional Information Patient not taking.Reported on 12/29/2021 albuterol 90 mcg/actuation inhaler Inhale 2 puffs into the lungs every 6 (six) hours as needed for wheezing. Active calcium carbonate 500 mg (200 mg elemental) chewable tablet Take 1 tablet by mouth daily. Active fluticasone propionate (FLOVENT HFA) 110 mcg/actuation inhaler Inhale 1 puff into the lungs 2 (two) times a day. Active levothyroxine (SYNTHROID, LEVOTHROID) 100 MCG tablet Take 100 mcg by mouth every morning. Active pantoprazole (PROTONIX) 40 MG tablet Take 40 mg by mouth daily. Active omeprazole (PRILOSEC) 40 MG capsule Take 40 mg by mouth daily. Active famotidine (PEPCID) 40 MG tablet Take 40 mg by mouth daily. Active medroxyPROGESTE Harry (DEPO-PROVERA) 150 mg/mL injection Inject 150 mg into the muscle every 3 (three) months. Active Active Problems Patient Care Coordination No te Formatting of this note migh t be different from the original. 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 Purif ied Surface Antigen) 12/22/2011,11/16/2010 MMR 08/19/1998,01/31/1996 Meningococcal MCV4P 06/01/2007 Pneumococcal polysaccharide PPSV23 03/22/2007 Tdap 06/01/2007 Varicella 07/31/1997 Social History Tobacco Use Types Packs/Day Years Used Date Smoking Tobacco: Never Smokeless Tobacco: Never Education Answer Date Recorded Are you interested in more education? Not on bonny e 07/20/2022 Are you concerned about learning? Not on file 07/20/2022 No 07/20/2022 No 07/20/2022 Digital Access Answer Date Recorded No 08/15/2022 No 08/15/2022 Reliable internet access at home? Not on file 08/15/2022 Device with a working camera? Not on file Comments Unknown Sex and Gender Information Value Date Recorded Sex Assigned at Not on file Legal Sex Female 6:55 PM EST Gender Identity Not on file Sexual Orientation Not on file Last Filed Vital Signs Vital Sign Reading Time Taken Comments Blood Pressure 116/78 01/12/2023 10:23 AM EDT Pulse 100 01/12/2023 10:23 AM EDT Temperature 37 C (98.6 F) 12/05/2019 3:08 PM EDT Respiratory Rate - - Oxygen Saturation 96% 01/12/2023 10:23 AM EDT Inhaled Oxygen Concentration - - Weight 80 kg (176 lb 5.9 oz) 01/12/2023 10:23 AM EDT Height 152.4 cm (5') 01/12/2023 10:23 AM EDT Body Mass Index 34.44 01/12/2023 10:23 AM EDT Plan of Treatment Upcoming Encounters Date Type Department Care Team (Late st Contact Info) Description 04/16/2025 2:00 PM EST Office Visit [facility] Allergy [address], [address] [place] [address] Trina Ellison MD [address] [facility] [address] [place] [address] [email or web address] Health Maintenance Due Date Last Done Comments TSH LEVEL 1994 DEPRESSION SCREENING 2006 PNEUMOCOCCAL VACCINES (0-49 years) (2 of 2 - PCV) 03/22/2008 03/22/2007 HEPATITIS C SCREENING 02/11/2012 HIV ONE-TIME SCREENING (18-65 YEARS) 02/11/2012 PAP SMEAR 2015 Adult Td,Tdap Booster 05/31/2017 06/01/2007 INFLUENZA VACCINE (#1) 2024 , 12/22/2011, 11/16/2010, Additional history exists COVID-19 VACCINE (1 - season) 2024 HIB VACCINES Completed 02/18/1996, 07/21, 1994, Additional history exists MENINGOCOCCAL VACCINES (ACWY) Aged Out 06/01/2007 No longer eligible based on patient's age to complete this topic SMOKING STATUS SCREENING (Once After 26 Yrs) Completed 01/12/2023 HEPATITIS A VACCINES Aged Out No long er eligible based on patient's age to complete this topic MENINGOCOCCAL VACCINES (B) Aged Out N o longer eligible based on patient's age to complete this topic Medical Devices Not on file Insurance [employer] [place] [address] [place] [address] [employer] [place] [place] [address] PARTNERSHIP ACO [facility]CO [facility] [employer] PARTNERSHIP ACO Care Teams Kennel Hand Relationship Specialty Start Date End Date Viet Martell MD [address] [place] [id number] [email or web address] PCP - Hematology/Oncology Medical Oncology 11/06/19 Beverly Pink MD [address] [place] [address] PCP - General Internal Medicine 11/20/19 Additional Source Comments The information contained in this document represents components of the legal health record. It is not the complete legal health record.Formerly [facility]
--- NOTE | 2024-12-26 07:26 | MHC.AU.HA3 ---
Hearing Instrument Follow-Up- Binaural Date of Visit: 12/26/24 Right Ear: Make, Model, Color, Serial Number: Linda Banks P 70-UP SN: [id number] Color: Black Finance Intern Repair Warranty: 08/23/2024 Finance Intern Loss and Damage Warranty: 08/23/2024 [facility] Service Plan: 06/11/2022 Battery Size: 675 Earmold/Dome/CShell/SlimTip:Microsonic shell mold Dispensed By: [facility] Date of Fittin06/11/2021 Left Ear: Make, Model, Color, Serial Number: Linda Ayalaida P 70-UP SN: [id number] Color: Black Finance Intern Repair Warranty: 08/23/2024 Finance Intern Loss and Damage Warranty: 08/23/2024 [facility] Service Plan: 06/11/2022 Battery Size: 675 Earmold/Dome/CShell/SlimTip: Microsonic shell mold Dispensed By: [facility] Date of Fittin06/11/2021 Follow-Up Summary: Both HAs/EMs dropped off 12/25/2024, assessed on 12/26/2024. Tubing hard/discolored, slipping out of EMs. Tone hooks continually spinning. Microphones occluded with debris. Cleaned HAs (2). Cleaned EMs (2). Replaced tubing (2). 88806 x6. Replaced tone hooks. Brushed and vacuumed microphones. Listening check demonstrated HAs amplifying clearly. To front office for clam picker. Recommendations: Hearing instrument follow-up or maintenance as needed. Please contact our clinic with any questions or concerns. 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
== END 2024-12-25 13:37 | disposition home or self-care (01) ==
LOC: HO.HAP 13:36
PROVIDERS: Visit Provider Internal Medicine
DX: Z46.1 Encounter for fitting and adjustment of hearing aid (principal); H90.3 Sensorineural hearing loss, bilateral
CPT/HCPCS: V5266

== ENCOUNTER 2024-12-26 14:57 | Outpatient (REF) | payer OTHER, SELFPAY | END 2024-12-26 14:58 | disposition home or self-care (01) | LOC: HO.HAP 14:57 | PROVIDERS: Visit Provider Internal Medicine | DX: Z46.1 Encounter for fitting and adjustment of hearing aid (principal); H90.3 Sensorineural hearing loss, bilateral | CPT/HCPCS: 92593; 99499 ==